=== PATIENT | male | born 1985 | race Caucasian/White ===

== ENCOUNTER 2017-07-22 04:28 | Inpatient (IN) | payer OTHER ==
[~2017-07-22] VITALS: Ht 172.7 cm; Wt 76.8 kg
[2017-07-22] VITALS (11 sets, daily range): BP systolic 136–154; BP diastolic 70–78; PULSE 60–92; RESP 16–39; TEMP 98.2–98.8; O2SAT 97–100
[2017-07-22] MEDS ORDERED: MIDAZOLAM HCL 5 MG/ML VIAL (1 ML) ONE (04:48)
[2017-07-22 04:51] LABS: I-STAT POTASSIUM 3.2 MMOL/L (3.5-4.9)
[2017-07-22] MEDS ORDERED: KETAMINE HCL 500 MG/5 ML VIAL ONE (04:51)
[2017-07-22 05:01] LABS: AUTOMATED NEUTROPHIL # 11.8 TH/MM3 (1.8-7.7); BASOPHIL # 0.1 TH/MM3 (0-0.2); BASOPHIL % 0.7 % (0.0-2.0); EOSINOPHIL # 0.1 TH/MM3 (0-0.4); EOSINOPHIL % 0.6 % (0.0-4.0); HEMO FLAGS DIFF FINAL; LYMPH % 24.8 % (9.0-44.0); LYMPHOCYTE # 4.3 TH/MM3 (1.0-4.8); MEAN CELL VOLUME 79.4 FL (80.0-100.0); MEAN CORPUSCULAR HEMOGLOBIN 26.4 PG (27.0-34.0); MEAN CORPUSCULAR HGB CONC 33.2 % (32.0-36.0); MONO % 5.6 % (0.0-8.0); NEUT % 68.3 % (16.0-70.0); PLATELET COUNT 325 TH/MM3 (150-450); RED BLOOD COUNT 5.17 MIL/MM3 (4.50-5.90); RED CELL DISTRIBUTION WIDTH 14.4 % (11.6-17.2); WHITE BLOOD COUNT 17.3 TH/MM3 (4.0-11.0)
[2017-07-22 05:03] LABS: APTT (PATIENT) 25.2 SEC (24.3-30.1)
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
[2017-07-22] MEDS ORDERED: SODIUM CHLOR 0.9% 1000 ML INJ 1,000 ML IV SCH (05:11)
[2017-07-22] MEDS ORDERED: MISCELLANEOUS NURSING INFORMATION XX SCH (05:15)
[2017-07-22] MEDS ORDERED: ENALAPRILAT 1.25 MG/ML VIAL IV PRN (05:15)
[2017-07-22] MEDS ORDERED: MAGNESIUM HYDROXIDE SUSP 30 ML CUP PO PRN (05:15)
[2017-07-22] MEDS ORDERED: MORPHINE SULFATE 4 MG/ML INJ IV PRN (05:15)
[2017-07-22] MEDS ORDERED: ONDANSETRON HCL 4 MG/2 ML VIAL IV PRN (05:15)
[2017-07-22] MEDS ORDERED: CHLORHEXIDINE GLUCONATE 2 % 1 PACK (2 CLOTHS) TOP PRN (05:15)
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
[2017-07-22] MEDS ORDERED: IOHEXOL 350 MG/ML 10 ML VIAL (for RAD DIAG) IVCONTRAST ONE (05:27)
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
[2017-07-22] MEDS ORDERED: HYDROmorphone HCL PF 1 MG/ML VIAL IV PUSH ONE (05:45)
[2017-07-22] MEDS: HYDROmorphone HCL PF 1 MG/ML VIAL IV PUSH PRN ×4 (06:54→23:41)
[2017-07-22] MEDS ORDERED: LACTULOSE SYRUP 20 GM/30 ML CUP PO PRN (07:15)
[2017-07-22] MEDS ORDERED: ACETAMINOPHEN 1000 MG/100 ML VIAL IV PRN (07:15)
[2017-07-22] MEDS ORDERED: RESP: ALBUTEROL 2.5 MG/IPRATROPIUM 0.5 MG NEB (PRN) NEB (07:15)
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
[2017-07-22] MEDS: DOCUSATE SODIUM 50 MG/SENNA 8.6 MG TAB PO SCH ×2 (09:00→21:43)
[2017-07-22] MEDS ORDERED: DOCUSATE SODIUM 100 MG/10 ML UDC PO SCH (09:00)
[2017-07-22] MEDS: levETIRAcetam INJ 500 MG in SODIUM CHLORIDE 0.9% INJ 100 ML IV SCH ×2 (09:09→21:43)
[2017-07-22] MEDS: PANTOPRAZOLE SODIUM 40 MG VIAL IV PUSH SCH (09:10)
[2017-07-22] MEDS: MULTIVITAMIN INJ 10 ML, THIAMINE INJ 100 MG, FOLIC ACID INJ 1 MG in SODIUM CHLORID 0.9%... IV SCH (09:20)
[2017-07-22] MEDS ORDERED: LACTATED RINGER'S 1000 ML INJ 1,000 ML IV ONE (09:46)
[2017-07-22] MEDS ORDERED: NEOSTIGMINE 3 MG/3 ML SYR IV ONE (09:46)
[2017-07-22] MEDS ORDERED: ONDANSETRON HCL 4 MG/2 ML VIAL IV PUSH ONE (09:46)
[2017-07-22] MEDS ORDERED: PROPOFOL 200 MG/20 ML AMP IV ONE (09:46)
[2017-07-22] MEDS ORDERED: VANCOMYCIN HCL 1000 MG VIAL ONE (09:55)
[2017-07-22] MEDS ORDERED: ceFAZolin INJ 1,000 MG VIAL ONE (09:55)
--- NOTE | 2017-07-22 12:57 | PD.OP ---
cc: Parvez Morales MD Operative Report Date of Surgery: Jul 22, 2017 Preoperative Diagnosis: Displaced left distal tibia and fibula fractures Postoperative Diagnosis: Procedure: Closed reduction left distal tibia and fibula fractures with manipulation, external fixation left ankle Anesthesia: Gen. Surgeon: Parvez Morales [employer] Buyer(s): CHRIS Kumari PA-C The surgical procedure was assisted by my physician it administrative assistant. My P.A. presence was necessary throughout this case for the manipulation and positioning of the surgical extremity. My P.A. was assisting me throughout the duration of this procedure. The skill set of a physician it administrative assistant was medically necessary to complete this procedure. During the surgical case the mechanical service technician was working at the back table and the physician it administrative assistant was directly assisting me. Operation and Findings: This patient sustained an injury resulting in unstable fractures of the left distal tibia and fibula. Patient was seen and evaluated preoperatively and found to have too much swelling to proceed with open reduction internal fixation. Risk and benefits of surgery were discussed in depth with patient and informed consent was confirmed. Surgical site was marked. Patient was brought to operating room and placed on the OR table. Patient was given IV sedation and GETA. Patient received IV antibiotics and timeout procedure was performed. Operative leg was prepped with alcohol followed by Hibiclens and draped in the usual sterile fashion.resulting in left tibia-fibula fractures. Timeout procedure was performed. The procedure began with placement of external fixation. Two percutaneous incisions were made over the tibia. Pin sites were pre-drilled. Synthes VILLANUEVA- coated pins were placed from anterior to posterior in the tibia shaft. An additional transfixion pin was placed through the calcaneus. Pins were also placed in the first and fifth metatarsals. An external fixator was now constructed. Fluoroscopy was used to confirm appropriate pin placement Next attention was turned to traction with manipulation of the leg. The fracture was manipulated under fluoroscopy. Excellent reduction was achieved. With the fracture held in reduced position, the external fixator was tightened. Fluoroscopy confirmed a well-placed external fixation with well-aligned fractures. Sterile dressings were applied. The patient was awakened and transferred to Recovery in stable condition. The soft tissue was reevaluated. Patient did have swelling around the ankle and calf but compartments were soft and compressible with no signs of compartment syndrome. Parvez Morales MD Jul 22, 2017 12:57
[2017-07-22] MEDS ORDERED: Post-op Orders (for Pharmacy) MISC XX ONE (13:00)
[2017-07-22] MEDS ORDERED: diphenhydrAMINE HCL 25 MG CAP PO PRN (13:00)
[2017-07-22] MEDS ORDERED: *MEPERIDINE 25 MG INJ VIAL PERIprocedural Use ONLY ONE (13:12)
[2017-07-22] MEDS ORDERED: *HYDROmorphone PF 1 MG VIAL PERIprocedural Use ONLY ONE (13:12)
[2017-07-22] MEDS ORDERED: DO NOT ADM ANY ANTICOAGULANT DRUGS PRN (13:45)
--- NOTE | 2017-07-22 13:55 | RADRPT ---
EXAM DATE/TIME: 07/22/2017 12:49 [facility] COMPARISON: No previous studies available for comparison. INDICATIONS : External fixation of the left ankle. MEDICAL HISTORY : None. SURGICAL HISTORY : None. ENCOUNTER: Subsequent ACUITY: 1 day PAIN SCORE: Non-responsive. LOCATION: Left ankle. FINDINGS: Patient is in an external fixator. There is reasonable alignment across the tibial plafond. There i s reasonable alignment across the distal tibia and fibula. CONCLUSION: Reasonable alignment in external fixer. Sreekanth Harper MD FACR on July 22, 2017 at 13:53 Board Certified Radiologist. This report was verified electronically.
--- NOTE | 2017-07-22 15:02 | RADRPT ---
EXAM DATE/TIME: 07/22/2017 14:20 [facility] COMPARISON: CT BRAIN W/O CONTRAST, July 22, 2017, 4:57. INDICATIONS : Follow up for bleed. RADIATION DOSE: 48.05 CTDIvol (mGy) MEDICAL HISTORY : Non-responsive. SURGICAL HISTORY : Non-responsive. ENCOUNTER: Subsequent ACUITY: 2 days PAIN SCALE: Non-responsive LOCATION: cranial TECHNIQUE: Multiple contiguous axial images were obtained of the head. Using automated exposure control and adj ustment of the mA and/or kV according to patient size, radiation dose was kept as low as reasonably a chievable to obtain optimal diagnostic quality images. DICOM format image data is available electro nically for review and comparison. FINDINGS: CEREBRUM: Stable small cortical hemorrhage left orbital floor to region no new hemorrhages are identified. POSTERIOR FOSSA: The cerebellum and brainstem are intact. The 4th ventricle is midline. The cerebellopontine angle i s unremarkable. EXTRACRANIAL: The visualized portion of the orbits is intact. SKULL: The calvaria is intact. No evidence of skull fracture. CONCLUSION: Stable small left frontal hemorrhage. Sreekanth Harper MD FACR on July 22, 2017 at 14:59 Board Certified Radiologist. This report was verified electronically.
[2017-07-22] MEDS: LACTATED RINGER'S 1000 ML INJ 1,000 ML IV SCH (15:05)
--- NOTE | 2017-07-22 15:10 | RADRPT ---
EXAM DATE/TIME: 07/22/2017 14:27 [facility] COMPARISON: No previous studies available for comparison. INDICATIONS : Left ankle fractures. RADIATION DOSE: 5.35 CTDIvol (mGy) MEDICAL HISTORY : Non-responsive. SURGICAL HISTORY : Non-responsive. ENCOUNTER: Initial ACUITY: 1 day PAIN SCALE: Non-responsive LOCATION: Left ankle TECHNIQUE: Volumetric scanning of the ankle was performed. Using automated exposure control and adjustment of t he mA and/or kV according to patient size, radiation dose was kept as low as reasonably achievable to obtain optimal diagnostic quality images. DICOM format image data is available electronically for review and comparison. FINDINGS: Patient is an external fixer. Only really can't there is good alignment across the articular surface of the tibial plafond. There are no intra-articular fragments identified. The talar dome is intact . The fracture, proximal C7 swimmer's above the tibial plafond is noted. Alignment about the fibula an d talus is anatomic. The comminution remains across the tibial plafond vital sign large dye punch defect evident. CONCLUSION: Alignment as described above in external fixator. Sreekanth Harper MD FACR on July 22, 2017 at 15:06 Board Certified Radiologist. This report was verified electronically.
[2017-07-22] MEDS: METHOCARBAMOL 500 MG TAB PO SCH ×2 (15:46→21:43)
[2017-07-22] MEDS: KETOROLAC TROMETHAMINE 30 MG/ML (IVP) VIAL IVP SCH ×2 (15:47→21:43)
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
[2017-07-23] VITALS (14 sets, daily range): BP systolic 122–145; BP diastolic 59–83; PULSE 51–84; RESP 14–23; TEMP 98.2–99.5; O2SAT 96–100
[2017-07-23] MEDS: LACTATED RINGER'S 1000 ML INJ 1,000 ML IV SCH (01:23)
[2017-07-23] MEDS: CHLORHEXIDINE GLUCONATE 2 % 1 PACK (2 CLOTHS) TOP SCH (04:00)
[2017-07-23 04:50] LABS: BICARBONATE 20.9 MEQ/L (21.0-32.0); POTASSIUM 4.1 MEQ/L (3.5-5.1)
[2017-07-23 05:28] LABS: AUTOMATED NEUTROPHIL # 7.2 TH/MM3 (1.8-7.7); BASOPHIL % 0.1 % (0.0-2.0); EOSINOPHIL % 0.1 % (0.0-4.0); HEMATOCRIT 36.3 % (39.0-51.0); HEMO FLAGS DIFF FINAL; LYMPH % 11.2 % (9.0-44.0); MEAN CELL VOLUME 79.3 FL (80.0-100.0); MEAN CORPUSCULAR HEMOGLOBIN 25.9 PG (27.0-34.0); MEAN CORPUSCULAR HGB CONC 32.6 % (32.0-36.0); NEUT % 78.6 % (16.0-70.0); PLATELET COUNT 220 TH/MM3 (150-450); RED BLOOD COUNT 4.58 MIL/MM3 (4.50-5.90); RED CELL DISTRIBUTION WIDTH 14.5 % (11.6-17.2); WHITE BLOOD COUNT 9.2 TH/MM3 (4.0-11.0)
--- NOTE | 2017-07-23 06:07 | RADRPT ---
EXAM DATE/TIME: 07/23/2017 04:33 [facility] COMPARISON: CHEST SINGLE AP, July 22, 2017, 4:20. INDICATIONS : Shortness of breath. MEDICAL HISTORY : Non-responsive SURGICAL HISTORY : Non-responsive ENCOUNTER: Subsequent ACUITY: 2 days PAIN SCORE: Non-responsive. LOCATION: Bilateral chest FINDINGS: A single view of the chest demonstrates subsegmental airspace disease at the lung bases. No effusion. No pneumothorax. Heart size upper limits normal. CONCLUSION: 1. Subsegmental airspace disease at the lung bases are, increased on the left since July 2. Tre Casarez MD on July 23, 2017 at 6:03 Board Certified Radiologist. This report was verified electronically.
[2017-07-23] MEDS: METHOCARBAMOL 500 MG TAB PO SCH ×3 (06:41→21:27)
[2017-07-23] MEDS: KETOROLAC TROMETHAMINE 30 MG/ML (IVP) VIAL IVP SCH (06:42)
--- NOTE | 2017-07-23 07:01 | PD.ORT.PN ---
Subjective Subjective Remarks POD 1 s/p exfix left tibial pilon fx doing well. pain controlled. resting comfortably. Objective Vitals Vital Signs Date Time Temp Pulse Resp B/P (MAP) Pulse Ox O2 Delivery O2 Flow Rate FiO2 07/23/17 04:00 55 07/23/17 04:00 98.6 55 17 128/66 (86) 96 07/23/17 02:00 52 07/23/17 00:00 84 07/23/17 00:00 98.2 58 14 122/59 (80) 100 07/22/17 22:00 84 07/22/17 20:57 98 07/22/17 20:00 98.8 76 27 154/78 (103) 97 07/22/17 20:00 84 07/22/17 19:00 100 Room Air 07/22/17 18:00 65 07/22/17 16:00 98.2 62 16 145/70 (95) 98 07/22/17 16:00 60 07/22/17 14:00 70 07/22/17 13:45 98.0 68 18 151/77 (101) 98 Nasal Cannula 2 07/22/17 13:30 73 18 160/79 (106) 100 Nasal Cannula 2 07/22/17 13:15 98.0 84 18 160/75 (103) 100 Nasal Cannula 2 07/22/17 11:55 98.8 80 20 128/66 (86) 97 07/22/17 10:40 98.8 80 20 128/66 (86) 97 07/22/17 10:00 85 07/22/17 08:00 92 07/22/17 08:00 100 Room Air 07/22/17 07:57 98 21 07/22/17 07:15 98.7 87 31 136/74 (94) 100 I/O 07/22/17 07/22/17 07/22/17 07/23/17 07/23/17 07/23/17 07:00 15:00 23:00 07:00 15:00 23:00 Intake Total 1705 ml 1487 ml Output Total 100 ml 20 ml 600 ml Balance -100 ml 1685 ml 887 ml Intake Oral 100 ml IV Total 705 ml 1387 ml Other 1000 ml Output Urine Total 100 ml 600 ml Estimated Blood Loss 20 ml Result Diagram: 07/23/17 0415 07/23/17 0415 Imaging Last 24 hours Impressions Pelvis X-Ray 07/22/178 Signed Impressions: Service Date/Time: Saturday, July 22, 2017 04:20 - CONCLUSION: Unremarkable examination of the pelvis. Tre Casarez MD Maxillofacial CT 07/22/17 0438 Signed Impressions: Service Date/Time: Saturday, July 22, 2017 04:57 - CONCLUSION: 1. No acute fracture identified. Trace fluid in the maxillary sinuses. Tre Casarez MD Head CT 07/22/17437 Signed Impressions: Service Date/Time: Saturday, July 22, 2017 04:57 - CONCLUSION: 1. 5 mm hemorrhagic contusion left frontal lobe. No other hemorrhage identified. Tre Casarez MD Chest X-Ray 07/22/17437 Signed Impressions: Service Date/Time: Saturday, July 22, 2017 04:20 - CONCLUSION: No acute disease. Tre Casarez MD Chest CT 07/22/17437 Signed Impressions: Service Date/Time: Saturday, July 22, 2017 05:02 - CONCLUSION: 1. Fractures of the right scapula and first and second right ribs as above. Mild right lung contusion superiorly. Dependent atelectasis in the lungs. Trace pleural fluid. No mediastinal hematoma. Tre Casarez MD Cervical Spine CT 07/22/178 Signed Impressions: Service Date/Time: Saturday, July 22, 2017 04:57 - CONCLUSION: 1. Fracture left transverse process C7, nondisplaced. No other cervical spine fractures. Upper right rib fractures noted incidentally. Tre Casarez MD Abdomen/Pelvis CT 07/22/17 0438 Signed Impressions: Service Date/Time: Saturday, July 22, 2017 05:02 - CONCLUSION: 1. Dependent atelectasis in the lungs. Negative for traumatic injury within the abdomen and pelvis. Tre Casarez MD Tibia/Fibula X-Ray 07/22/17 0000 Signed Impressions: Service Date/Time: Saturday, July 22, 2017 04:20 - CONCLUSION: 1. Fractures distal tibia and fibula. Also mildly displaced fracture proximal fibula. Tre Casarez MD Objective Remarks LLE: +exfix. pin sites clean. full sensation distally. 2+ swelling of ankle Assessment & Plan Assessment and Plan 1) Left Tibial Pilon Fx s/p application of exfix - POD 1 -ice -elevate -NWB -will continue to eval swelling. will plan for OR when swelling improved -Toradol 30mg Q6H x 6 doses Andrae Silva Jul 23, 2017 07:01
[2017-07-23] MEDS: KETOROLAC TROMETHAMINE 30 MG/ML (IVP) VIAL IV PUSH SCH ×4 (07:15→23:38)
[2017-07-23] MEDS: PANTOPRAZOLE SODIUM 40 MG VIAL IV PUSH SCH (07:38)
[2017-07-23] MEDS: levETIRAcetam INJ 500 MG in SODIUM CHLORIDE 0.9% INJ 100 ML IV SCH ×2 (08:09→21:27)
[2017-07-23] MEDS: DOCUSATE SODIUM 50 MG/SENNA 8.6 MG TAB PO SCH ×2 (08:11→21:27)
--- NOTE | 2017-07-23 08:12 | RADRPT ---
EXAM DATE/TIME: 07/23/2017 07:49 [facility] COMPARISON: CT BRAIN W/O CONTRAST, July 22, 2017, 14:20. INDICATIONS : Follow up bleed. RADIATION DOSE: 56.35 CTDIvol (mGy) MEDICAL HISTORY : Non-responsive. SURGICAL HISTORY : Non-responsive. ENCOUNTER: Subsequent ACUITY: 2 days PAIN SCALE: Non-responsive LOCATION: cranial TECHNIQUE: Multiple contiguous axial images were obtained of the head. Using automated exposure control and adj ustment of the mA and/or kV according to patient size, radiation dose was kept as low as reasonably a chievable to obtain optimal diagnostic quality images. DICOM format image data is available electro nically for review and comparison. FINDINGS: There is a focal left frontal subcortical hemorrhage measuring 5.8 mm. There is no midline shift or m ass effect. No signs of acute infarction. No fractures are seen. CONCLUSION: Stable left frontal parenchymal hemorrhage.. Jason Bernstein MD on July 23, 2017 at 8:10 Board Certified Radiologist. This report was verified electronically.
[2017-07-23] MEDS: MULTIVITAMIN INJ 10 ML, THIAMINE INJ 100 MG, FOLIC ACID INJ 1 MG in SODIUM CHLORID 0.9%... IV SCH (09:52)
--- NOTE | 2017-07-23 11:11 | HHI.CCPN ---
Subjective 24 Hour Review/Hospital Course 07/23/17 Patient underwent closed reduction of his left tibia and fibula fracture with ex -fix of his left ankle fracture yesterday His head CT is stable today and clinically he has much improved with a [place] Coma Scale of 15 Transfer to floor today if okay with neurosurgery, start Lovenox Monday Objective Vital Signs Date Time Temp Pulse Resp B/P (MAP) Pulse Ox O2 Delivery O2 Flow Rate FiO2 07/23/17 10:00 62 07/23/17 08:00 99.0 19 135/65 (88) 99 07/23/17 07:00 Room Air 07/22/17 13:45 2 07/22/17 07:57 21 Intake and Output 07/23/17 07/23/17 07/24/17 08:00 16:00 00:00 Intake Total 1167 ml 301 ml Output Total 600 ml Balance 567 ml 301 ml Result Diagram: 07/23/17 0415 07/23/17 0415 Imaging Last 24 hours Impressions Chest X-Ray 07/23/17 0600 Signed Impressions: Service Date/Time: Sunday, July 23, 2017 04:33 - CONCLUSION: 1. Subsegmental airspace disease at the lung bases are, increased on the left since July 22. Tre Casarez MD Head CT 07/23/17 0000 Signed Impressions: Service Date/Time: Sunday, July 23, 2017 07:49 - CONCLUSION: Stable left frontal parenchymal hemorrhage.. Jason Bernstein MD Lower Extremity CT 07/22/17 1600 Signed Impressions: Service Date/Time: Saturday, July 22, 2017 14:27 - CONCLUSION: Alignment as described above in external fixator. Sreekanth Harper MD FACR Head CT 07/22/17 1200 Signed Impressions: Service Date/Time: Saturday, July 22, 2017 14:20 - CONCLUSION: Stable small left frontal hemorrhage. 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
[2017-07-23] MEDS ORDERED: SENN1TAB PO (12:16)
[2017-07-23] MEDS ORDERED: MAGN400S PO (12:16)
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
[2017-07-23] MEDS: ACETAMINOPHEN/HYDROcodone 325 MG/7.5 MG TAB PO PRN (21:27)
[2017-07-24] MEDS: ACETAMINOPHEN/HYDROcodone 325 MG/7.5 MG TAB PO PRN ×4 (00:27→22:16)
[2017-07-24] MEDS: CHLORHEXIDINE GLUCONATE 2 % 1 PACK (2 CLOTHS) TOP SCH (04:00)
[2017-07-24 04:10] VITALS: BP 116/65; PULSE 65; RESP 17; TEMP 97; O2SAT 97
[2017-07-24] MEDS: KETOROLAC TROMETHAMINE 30 MG/ML (IVP) VIAL IV PUSH SCH ×2 (05:46→13:14)
[2017-07-24] MEDS: METHOCARBAMOL 500 MG TAB PO SCH ×3 (05:46→22:16)
[2017-07-24 06:23] LABS: AUTOMATED NEUTROPHIL # 3.6 TH/MM3 (1.8-7.7); BASOPHIL % 0.6 % (0.0-2.0); EOSINOPHIL # 0.2 TH/MM3 (0-0.4); EOSINOPHIL % 2.8 % (0.0-4.0); HEMATOCRIT 33.7 % (39.0-51.0); HEMO FLAGS DIFF FINAL; LYMPH % 24.7 % (9.0-44.0); LYMPHOCYTE # 1.4 TH/MM3 (1.0-4.8); MEAN CELL VOLUME 77.9 FL (80.0-100.0); MEAN CORPUSCULAR HGB CONC 33.4 % (32.0-36.0); MONO % 8.7 % (0.0-8.0); NEUT % 63.2 % (16.0-70.0); PLATELET COUNT 214 TH/MM3 (150-450); RED BLOOD COUNT 4.33 MIL/MM3 (4.50-5.90); RED CELL DISTRIBUTION WIDTH 14.2 % (11.6-17.2); WHITE BLOOD COUNT 5.6 TH/MM3 (4.0-11.0)
--- NOTE | 2017-07-24 06:27 | RADRPT ---
EXAM DATE/TIME: 07/24/2017 05:51 [place] COMPARISON: Yesterday. INDICATIONS : Shortness of breath. MEDICAL HISTORY : Unobtainable SURGICAL HISTORY : Unobtainable ENCOUNTER: Subsequent ACUITY: 3 days PAIN SCORE: Non-responsive. LOCATION: Bilateral chest FINDINGS: Mild left base consolidation not significantly changed. A small left pleural effusion is likely. Righ t lung presumably clear. There is no pneumothorax. Heart size stable, upper limits of normal. CONCLUSION: Mild consolidation and small pleural effusion at the left lung base not significantly changed. Liam Venegas MD on July 24, 2017 at 6:24 Board Certified Radiologist. This report was verified electronically.
[2017-07-24 06:52] LABS: ALT (GPT) 215 U/L (12-78); ANION GAP 8 MEQ/L (5-15); AST (GOT) 144 U/L (15-37); BICARBONATE 23.8 MEQ/L (21.0-32.0); BLOOD UREA NITROGEN 14 MG/DL (7-18); CHLORIDE 111 MEQ/L (98-107); GLOMERULAR FILTRATION RATE 147 ML/MIN (>89); POTASSIUM 3.8 MEQ/L (3.5-5.1); SODIUM (NA) 143 MEQ/L (136-145)
[2017-07-24 06:54] LABS: ALKALINE PHOSPHATASE 47 U/L (45-117); TOTAL BILIRUBIN ADULT 0.7 MG/DL (0.2-1.0)
--- NOTE | 2017-07-24 07:10 | PD.ORT.PN ---
Subjective Subjective Remarks Resting comfortably with no new complaints Objective Vitals Vital Signs Date Time Temp Pulse Resp B/P (MAP) Pulse Ox O2 Delivery O2 Flow Rate FiO2 07/24/17 04:10 97.0 65 17 116/65 (82) 97 07/23/17 21:54 98.6 65 20 136/72 (93) 97 07/23/17 20:42 98 07/23/17 20:00 99.5 69 23 139/83 (101) 96 07/23/17 20:00 69 07/23/17 19:00 100 Room Air 07/23/17 18:00 75 07/23/17 16:00 98.7 75 20 131/73 (92) 99 07/23/17 16:00 77 07/23/17 14:00 55 07/23/17 13:50 98 21 07/23/17 12:00 99.1 51 14 145/77 (99) 100 07/23/17 12:00 51 07/23/17 10:00 62 07/23/17 08:00 99.0 67 19 135/65 (88) 99 07/23/17 08:00 67 I/O 07/23/17 07/23/17 07/23/17 07/24/17 07/24/17 07/24/17 07:00 15:00 23:00 07:00 15:00 23:00 Intake Total 1167 ml 911 ml 850 ml 240 ml Output Total 600 ml 650 ml 200 ml Balance 567 ml 911 ml 200 ml 40 ml Intake Oral 125 ml 200 ml 240 ml IV Total 1042 ml 911 ml 650 ml Output Urine Total 600 ml 650 ml 200 ml # Bowel Movements 0 0 Result Diagram: 07/24/17 0549 07/24/17 0549 Imaging Last 24 hours Impressions Pelvis X-Ray 07/22/17437 Signed Impressions: Service Date/Time: Saturday, July 22, 2017 04:20 - CONCLUSION: Unremarkable examination of the pelvis. Tre Casarez MD Maxillofacial CT 07/22/178 Signed Impressions: Service Date/Time: Saturday, July 22, 2017 04:57 - CONCLUSION: 1. No acute fracture identified. Trace fluid in the maxillary sinuses. Tre Casarez MD Head CT 07/22/178 Signed Impressions: Service Date/Time: Saturday, July 22, 2017 04:57 - CONCLUSION: 1. 5 mm hemorrhagic contusion left frontal lobe. No other hemorrhage identified. Tre Casarez MD Chest X-Ray 07/22/17437 Signed Impressions: Service Date/Time: Saturday, July 22, 2017 04:20 - CONCLUSION: No acute disease. Tre Casarez MD Chest CT 07/22/178 Signed Impressions: Service Date/Time: Saturday, July 22, 2017 05:02 - CONCLUSION: 1. Fractures of the right scapula and first and second right ribs as above. Mild right lung contusion superiorly. Dependent atelectasis in the lungs. Trace pleural fluid. No mediastinal hematoma. Tre Casarez MD Cervical Spine CT 07/22/17437 Signed Impressions: Service Date/Time: Saturday, July 22, 2017 04:57 - CONCLUSION: 1. Fracture left transverse process C7, nondisplaced. No other cervical spine fractures. Upper right rib fractures noted incidentally. Tre Casarez MD Abdomen/Pelvis CT 07/22/17437 Signed Impressions: Service Date/Time: Saturday, July 22, 2017 05:02 - CONCLUSION: 1. Dependent atelectasis in the lungs. Negative for traumatic injury within the abdomen and pelvis. Tre Casarez MD Tibia/Fibula X-Ray 07/22/17 0000 Signed Impressions: Service Date/Time: Saturday, July 22, 2017 04:20 - CONCLUSION: 1. Fractures distal tibia and fibula. Also mildly displaced fracture proximal fibula. Tre Casarez MD Objective Remarks Left lower extremity: +exfix. pin sites clean. full sensation distally. 2+ swelling of ankle Right upper extremity: Pain to palpation over scapula and acromion. Sling in place. He has no pain with motion of elbow wrist or fingers. He has intact sensation with full extension and flexion of all fingers Assessment & Plan Assessment and Plan 1) Left Tibial Pilon Fx s/p application of exfix - POD 2 -ice -elevate -NWB -will continue to eval swelling. will plan for OR when swelling improved -Toradol 30mg Q6H x 6 doses 2) right scapula body and acromion fracture Nonweightbearing right upper extremity Sling at all times Conservative treatment with no surgery anticipated. We'll continue to follow with x-rays to make sure fracture does not displace further Cosmo Saez Jr. Jul 24, 2017 07:09
[2017-07-24 08:00] VITALS: BP 120/65; PULSE 59; RESP 16; TEMP 98.5; O2SAT 97
[2017-07-24] MEDS: MULTIVITAMIN INJ 10 ML, THIAMINE INJ 100 MG, FOLIC ACID INJ 1 MG in SODIUM CHLORID 0.9%... IV SCH (09:21)
[2017-07-24] MEDS: levETIRAcetam INJ 500 MG in SODIUM CHLORIDE 0.9% INJ 100 ML IV SCH ×2 (09:21→21:16)
[2017-07-24] MEDS: LACTULOSE SYRUP 20 GM/30 ML CUP PO SCH ×2 (09:22→09:25)
[2017-07-24] MEDS: DOCUSATE SODIUM 50 MG/SENNA 8.6 MG TAB PO SCH ×2 (09:22→21:16)
[2017-07-24] MEDS: FAMOTIDINE 20 MG TAB PO SCH ×2 (09:22→21:16)
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
[2017-07-24] MEDS ORDERED: HYDROmorphone HCL PF 1 MG/ML VIAL IV PUSH PRN (11:00)
[2017-07-24 12:00] VITALS: BP 122/73; PULSE 70; RESP 17; TEMP 98; O2SAT 96
[2017-07-24] MEDS: ENOXAPARIN SODIUM 30 MG/0.3 ML SYRINGE SQ SCH ×2 (13:14→22:16)
[2017-07-24 16:00] VITALS: BP 141/81; PULSE 60; RESP 18; TEMP 98.6; O2SAT 98
[2017-07-24 19:50] VITALS: BP 132/75; PULSE 70; RESP 18; TEMP 98.3; O2SAT 97
[2017-07-24] MEDS: MAGNESIUM HYDROXIDE SUSP 30 ML CUP PO SCH (21:16)
[2017-07-24 23:00] VITALS: BP 131/70; PULSE 57; RESP 17; TEMP 97.9; O2SAT 97
[2017-07-25] MEDS: METHOCARBAMOL 500 MG TAB PO SCH ×3 (05:59→21:54)
--- NOTE | 2017-07-25 06:27 | PD.ORT.PN ---
Subjective Subjective Remarks Resting comfortably with no new complaints Objective Vitals Vital Signs Date Time Temp Pulse Resp B/P (MAP) Pulse Ox O2 Delivery O2 Flow Rate FiO2 07/24/17 23:00 97.9 57 17 131/70 (90) 97 07/24/17 19:50 98.3 70 18 132/75 (94) 97 07/24/17 16:00 98.6 60 18 141/81 (101) 98 07/24/17 12:00 98.0 70 17 122/73 (89) 96 07/24/17 08:00 98.5 59 16 120/65 (83) 97 I/O 07/24/17 07/24/17 07/24/17 07/25/17 07/25/17 07/25/17 06:59 14:59 22:59 06:59 14:59 22:59 Intake Total 240 ml 1680 ml Output Total 200 ml 800 ml Balance 40 ml 880 ml Intake Oral 240 ml 1680 ml Output Urine Total 200 ml 800 ml # Voids 4 # Bowel Movements 0 1 Result Diagram: 07/24/17 0549 07/24/17 0549 Imaging Last 24 hours Impressions Pelvis X-Ray 07/22/17437 Signed Impressions: Service Date/Time: Saturday, July 22, 2017 04:20 - CONCLUSION: Unremarkable examination of the pelvis. Tre Casarez MD Maxillofacial CT 07/22/17437 Signed Impressions: Service Date/Time: Saturday, July 22, 2017 04:57 - CONCLUSION: 1. No acute fracture identified. Trace fluid in the maxillary sinuses. Tre Casarez MD Head CT 07/22/178 Signed Impressions: Service Date/Time: Saturday, July 22, 2017 04:57 - CONCLUSION: 1. 5 mm hemorrhagic contusion left frontal lobe. No other hemorrhage identified. Tre Casarez MD Chest X-Ray 07/22/17437 Signed Impressions: Service Date/Time: Saturday, July 22, 2017 04:20 - CONCLUSION: No acute disease. Tre Casarez MD Chest CT 07/22/178 Signed Impressions: Service Date/Time: Saturday, July 22, 2017 05:02 - CONCLUSION: 1. Fractures of the right scapula and first and second right ribs as above. Mild right lung contusion superiorly. Dependent atelectasis in the lungs. Trace pleural fluid. No mediastinal hematoma. Tre Casarez MD Cervical Spine CT 07/22/17 0438 Signed Impressions: Service Date/Time: Saturday, July 22, 2017 04:57 - CONCLUSION: 1. Fracture left transverse process C7, nondisplaced. No other cervical spine fractures. Upper right rib fractures noted incidentally. Tre Casarez MD Abdomen/Pelvis CT 07/22/17 0438 Signed Impressions: Service Date/Time: Saturday, July 22, 2017 05:02 - CONCLUSION: 1. Dependent atelectasis in the lungs. Negative for traumatic injury within the abdomen and pelvis. Tre Casarez MD Tibia/Fibula X-Ray 07/22/17 0000 Signed Impressions: Service Date/Time: Saturday, July 22, 2017 04:20 - CONCLUSION: 1. Fractures distal tibia and fibula. Also mildly displaced fracture proximal fibula. Tre Casarez MD Objective Remarks Left lower extremity: +exfix. pin sites clean. full sensation distally. 2+ swelling of ankle Right upper extremity: Pain to palpation over scapula and acromion. Sling loosened. He has no pain with motion of elbow wrist or fingers. He has intact sensation with full extension and flexion of all fingers Assessment & Plan Assessment and Plan 1) Left Tibial Pilon Fx s/p application of exfix - POD 3 -ice -elevate -NWB -will continue to eval swelling. will plan for OR when swelling improved -Toradol 30mg Q6H x 6 doses 2) right scapula body and acromion fracture Nonweightbearing right upper extremity Sling at all times Conservative treatment with no surgery anticipated. We'll continue to follow with x-rays to make sure fracture does not displace further Cosmo Saez Jr. Jul 25, 2017 06:27
[2017-07-25] MEDS ORDERED: KETOROLAC TROMETHAMINE 30 MG/ML (IVP) VIAL IV PUSH SCH (06:30)
[2017-07-25 08:00] VITALS: BP 127/76; PULSE 56; RESP 18; TEMP 97.8; O2SAT 97
[2017-07-25] MEDS: DOCUSATE SODIUM 50 MG/SENNA 8.6 MG TAB PO SCH ×2 (08:18→21:54)
[2017-07-25] MEDS: FAMOTIDINE 20 MG TAB PO SCH ×2 (08:18→21:54)
[2017-07-25] MEDS: levETIRAcetam INJ 500 MG in SODIUM CHLORIDE 0.9% INJ 100 ML IV SCH ×2 (08:19→22:01)
[2017-07-25] MEDS: LACTULOSE SYRUP 20 GM/30 ML CUP PO SCH (09:00)
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
[2017-07-25] MEDS: ENOXAPARIN SODIUM 30 MG/0.3 ML SYRINGE SQ SCH ×2 (11:01→21:55)
[2017-07-25] MEDS: ACETAMINOPHEN/HYDROcodone 325 MG/7.5 MG TAB PO PRN (11:03)
[2017-07-25 12:00] VITALS: BP 129/73; PULSE 64; RESP 18; TEMP 98.3; O2SAT 97
[2017-07-25] MEDS: KETOROLAC TROMETHAMINE 30 MG/ML (IVP) VIAL IV PUSH SCH ×2 (13:09→21:55)
[2017-07-25 16:00] VITALS: BP 125/74; PULSE 60; RESP 18; TEMP 97.5; O2SAT 98
[2017-07-25 19:50] VITALS: BP 133/83; PULSE 69; RESP 17; TEMP 98.4; O2SAT 95
[2017-07-25] MEDS: MAGNESIUM HYDROXIDE SUSP 30 ML CUP PO SCH (21:54)
[2017-07-26 00:40] VITALS: BP 122/75; PULSE 64; RESP 16; TEMP 97; O2SAT 97
[2017-07-26] MEDS: METHOCARBAMOL 500 MG TAB PO SCH ×3 (05:39→21:14)
[2017-07-26] MEDS: KETOROLAC TROMETHAMINE 30 MG/ML (IVP) VIAL IV PUSH SCH ×3 (05:40→21:15)
--- NOTE | 2017-07-26 06:32 | PD.ORT.PN ---
Subjective Subjective Remarks POD 4 s/p exfix left tibial pilon fx doing well. pain controlled. resting comfortably. Objective Vitals Vital Signs Date Time Temp Pulse Resp B/P (MAP) Pulse Ox O2 Delivery O2 Flow Rate FiO2 07/26/17 04:00 Room Air 07/26/17 00:40 97.0 64 16 122/75 (91) 97 07/26/17 00:00 Room Air 07/25/17 20:00 Room Air 07/25/17 19:50 98.4 69 17 133/83 (100) 95 07/25/17 16:00 97.5 60 18 125/74 (91) 98 07/25/17 12:00 98.3 64 18 129/73 (91) 97 07/25/17 08:00 97.8 56 18 127/76 (93) 97 I/O 07/25/17 07/25/17 07/25/17 07/26/17 07/26/17 07/26/17 07:00 15:00 23:00 07:00 15:00 23:00 Intake Total 240 ml 600 ml 105 ml Output Total 200 ml Balance 40 ml 600 ml 105 ml Intake Oral 240 ml 600 ml IV Total 105 ml Output Urine Total 200 ml # Voids 4 # Bowel Movements 0 0 Result Diagram: 07/24/17 0549 07/24/17 0549 Imaging Last 24 hours Impressions Pelvis X-Ray 07/22/17437 Signed Impressions: Service Date/Time: Saturday, July 22, 2017 04:20 - CONCLUSION: Unremarkable examination of the pelvis. Tre Casarez MD Maxillofacial CT 07/22/17437 Signed Impressions: Service Date/Time: Saturday, July 22, 2017 04:57 - CONCLUSION: 1. No acute fracture identified. Trace fluid in the maxillary sinuses. Tre Casarez MD Head CT 07/22/17437 Signed Impressions: Service Date/Time: Saturday, July 22, 2017 04:57 - CONCLUSION: 1. 5 mm hemorrhagic contusion left frontal lobe. No other hemorrhage identified. Tre Casarez MD Chest X-Ray 07/22/17437 Signed Impressions: Service Date/Time: Saturday, July 22, 2017 04:20 - CONCLUSION: No acute disease. Tre Casarez MD Chest CT 9/2/17 0438 Signed Impressions: Service Date/Time: Saturday, July 22, 2017 05:02 - CONCLUSION: 1. Fractures of the right scapula and first and second right ribs as above. Mild right lung contusion superiorly. Dependent atelectasis in the lungs. Trace pleural fluid. No mediastinal hematoma. Tre Casarez MD Cervical Spine CT 07/22/17 0438 Signed Impressions: Service Date/Time: Saturday, July 22, 2017 04:57 - CONCLUSION: 1. Fracture left transverse process C7, nondisplaced. No other cervical spine fractures. Upper right rib fractures noted incidentally. Tre Casarez MD Abdomen/Pelvis CT 07/22/17 0438 Signed Impressions: Service Date/Time: Saturday, July 22, 2017 05:02 - CONCLUSION: 1. Dependent atelectasis in the lungs. Negative for traumatic injury within the abdomen and pelvis. Tre Casarez MD Tibia/Fibula X-Ray 07/22/17 0000 Signed Impressions: Service Date/Time: Saturday, July 22, 2017 04:20 - CONCLUSION: 1. Fractures distal tibia and fibula. Also mildly displaced fracture proximal fibula. Tre Casarez MD Objective Remarks Left lower extremity: +exfix. pin sites clean. full sensation distally. 2+ swelling of ankle Right upper extremity: Pain to palpation over scapula and acromion. Sling loosened. He has no pain with motion of elbow wrist or fingers. He has intact sensation with full extension and flexion of all fingers Assessment & Plan Assessment and Plan 1) Left Tibial Pilon Fx s/p application of exfix - POD 4 -ice -elevate -NWB -will continue to eval swelling. will plan for OR when swelling improved. still too swollen for OR 2) right scapula body and acromion fracture Nonweightbearing right upper extremity Sling at all times Conservative treatment with no surgery anticipated. We'll continue to follow with x-rays to make sure fracture does not displace further Andrae Silva Jul 26, 2017 06:32
[2017-07-26 08:00] VITALS: BP 113/77; PULSE 58; RESP 18; TEMP 97.3; O2SAT 97
[2017-07-26] MEDS: levETIRAcetam INJ 500 MG in SODIUM CHLORIDE 0.9% INJ 100 ML IV SCH ×2 (09:36→21:16)
[2017-07-26] MEDS: DOCUSATE SODIUM 50 MG/SENNA 8.6 MG TAB PO SCH ×2 (09:36→21:15)
[2017-07-26] MEDS: LACTULOSE SYRUP 20 GM/30 ML CUP PO SCH (09:36)
[2017-07-26] MEDS: FAMOTIDINE 20 MG TAB PO SCH ×2 (09:36→21:15)
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
[2017-07-26 12:00] VITALS: BP 122/72; PULSE 67; RESP 18; TEMP 97.8; O2SAT 97
[2017-07-26] MEDS: ACETAMINOPHEN/HYDROcodone 325 MG/7.5 MG TAB PO PRN (12:12)
[2017-07-26 16:00] VITALS: BP 112/67; PULSE 75; RESP 20; TEMP 97.4; O2SAT 98
[2017-07-26] MEDS: ENOXAPARIN SODIUM 30 MG/0.3 ML SYRINGE SQ SCH ×2 (16:00→21:20)
[2017-07-26 19:00] VITALS: BP 121/74; PULSE 69; RESP 16; TEMP 96; O2SAT 96
[2017-07-26] MEDS: MAGNESIUM HYDROXIDE SUSP 30 ML CUP PO SCH (21:00)
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
[2017-07-27] VITALS: BP 113/72; PULSE 63; RESP 16; TEMP 96.7; O2SAT 93
[2017-07-27] MEDS: METHOCARBAMOL 500 MG TAB PO SCH ×2 (06:10→21:27)
[2017-07-27] MEDS: KETOROLAC TROMETHAMINE 30 MG/ML (IVP) VIAL IV PUSH SCH (06:11)
--- NOTE | 2017-07-27 06:54 | PD.ORT.PN ---
Subjective Subjective Remarks POD 5 s/p exfix left tibial pilon fx doing well. pain controlled. resting comfortably. Objective Vitals Vital Signs Date Time Temp Pulse Resp B/P (MAP) Pulse Ox O2 Delivery O2 Flow Rate FiO2 07/27/17 00:00 96.7 63 16 113/72 (86) 93 07/26/17 20:00 Room Air 07/26/17 19:00 96.0 69 16 121/74 (90) 96 07/26/17 16:00 97.4 75 20 112/67 (82) 98 07/26/17 12:00 97.8 67 18 122/72 (89) 97 07/26/17 08:00 97.3 58 18 113/77 (89) 97 07/26/17 08:00 97.3 58 18 113/77 (89) 07/26/17 07:00 Room Air 2.00 21 I/O 07/26/17 07/26/17 07/26/17 07/27/17 07/27/17 07/27/17 07:00 15:00 23:00 07:00 15:00 23:00 Intake Total 240 ml 600 ml 720 ml Output Total 200 ml Balance 40 ml 600 ml 720 ml Intake Oral 240 ml 600 ml 720 ml Output Urine Total 200 ml # Voids 4 5 3 # Bowel Movements 0 0 0 0 Result Diagram: 07/24/17 0549 07/24/17 0549 Imaging Last 24 hours Impressions Pelvis X-Ray 07/22/17437 Signed Impressions: Service Date/Time: Saturday, July 22, 2017 04:20 - CONCLUSION: Unremarkable examination of the pelvis. Tre Casarez MD Maxillofacial CT 07/22/17437 Signed Impressions: Service Date/Time: Saturday, July 22, 2017 04:57 - CONCLUSION: 1. No acute fracture identified. Trace fluid in the maxillary sinuses. Tre Casarez MD Head CT 07/22/17437 Signed Impressions: Service Date/Time: Saturday, July 22, 2017 04:57 - CONCLUSION: 1. 5 mm hemorrhagic contusion left frontal lobe. No other hemorrhage identified. Tre Casarez MD Chest X-Ray 07/22/17437 Signed Impressions: Service Date/Time: Saturday, July 22, 2017 04:20 - CONCLUSION: No acute disease. Tre Casarez MD Chest CT 07/22/17 0438 Signed Impressions: Service Date/Time: Saturday, July 22, 2017 05:02 - CONCLUSION: 1. Fractures of the right scapula and first and second right ribs as above. Mild right lung contusion superiorly. Dependent atelectasis in the lungs. Trace pleural fluid. No mediastinal hematoma. Tre Casarez MD Cervical Spine CT 07/22/17 0438 Signed Impressions: Service Date/Time: Saturday, July 22, 2017 04:57 - CONCLUSION: 1. Fracture left transverse process C7, nondisplaced. No other cervical spine fractures. Upper right rib fractures noted incidentally. Tre Casarez MD Abdomen/Pelvis CT 07/22/178 Signed Impressions: Service Date/Time: Saturday, July 22, 2017 05:02 - CONCLUSION: 1. Dependent atelectasis in the lungs. Negative for traumatic injury within the abdomen and pelvis. Tre Casarez MD Tibia/Fibula X-Ray 07/22/17 0000 Signed Impressions: Service Date/Time: Saturday, July 22, 2017 04:20 - CONCLUSION: 1. Fractures distal tibia and fibula. Also mildly displaced fracture proximal fibula. Tre Casarez MD Objective Remarks Left lower extremity: +exfix. pin sites clean. full sensation distally. 2+ swelling of ankle Right upper extremity: Pain to palpation over scapula and acromion. Sling loosened. He has no pain with motion of elbow wrist or fingers. He has intact sensation with full extension and flexion of all fingers Assessment & Plan Assessment and Plan 1) Left Tibial Pilon Fx s/p application of exfix - POD 5 -ice -elevate -NWB -will continue to eval swelling. will plan for OR when swelling improved. still too swollen for OR -npo after MN -hold lovenox after AM dose 2) right scapula body and acromion fracture Nonweightbearing right upper extremity Sling at all times Conservative treatment with no surgery anticipated. We'll continue to follow with x-rays to make sure fracture does not displace further Andrae Silva Jul 27, 2017 06:53
[2017-07-27 08:00] VITALS: BP 121/77; PULSE 60; RESP 16; TEMP 97.4; O2SAT 97
[2017-07-27] MEDS: LACTULOSE SYRUP 20 GM/30 ML CUP PO SCH (09:28)
[2017-07-27] MEDS: levETIRAcetam INJ 500 MG in SODIUM CHLORIDE 0.9% INJ 100 ML IV SCH ×2 (09:28→21:27)
[2017-07-27] MEDS: ACETAMINOPHEN/HYDROcodone 325 MG/7.5 MG TAB PO PRN (09:28)
[2017-07-27] MEDS: FAMOTIDINE 20 MG TAB PO SCH ×2 (09:28→21:27)
[2017-07-27] MEDS: DOCUSATE SODIUM 50 MG/SENNA 8.6 MG TAB PO SCH ×2 (09:28→21:27)
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
[2017-07-27 11:52] VITALS: BP 111/65; PULSE 68; RESP 17; TEMP 97.5; O2SAT 96
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
[2017-07-27 16:00] VITALS: BP 127/71; PULSE 59; RESP 17; TEMP 97.5; O2SAT 98
[2017-07-27 20:00] VITALS: BP 121/74; PULSE 87; RESP 16; TEMP 99; O2SAT 97
[2017-07-27] MEDS: MAGNESIUM HYDROXIDE SUSP 30 ML CUP PO SCH (21:27)
[2017-07-28] VITALS: BP 130/76; PULSE 69; RESP 16; TEMP 98.7; O2SAT 97
[2017-07-28 04:00] VITALS: BP 119/68; PULSE 64; RESP 17; TEMP 98.8; O2SAT 97
[2017-07-28] MEDS: METHOCARBAMOL 500 MG TAB PO SCH ×3 (06:14→21:58)
[2017-07-28] MEDS: levETIRAcetam INJ 500 MG in SODIUM CHLORIDE 0.9% INJ 100 ML IV SCH ×2 (07:41→22:04)
[2017-07-28] MEDS: DOCUSATE SODIUM 50 MG/SENNA 8.6 MG TAB PO SCH ×2 (07:41→21:58)
[2017-07-28] MEDS: LACTULOSE SYRUP 20 GM/30 ML CUP PO SCH (07:41)
[2017-07-28] MEDS: FAMOTIDINE 20 MG TAB PO SCH ×2 (07:41→21:58)
[2017-07-28 08:00] VITALS: BP 133/72; PULSE 59; RESP 16; TEMP 98.4; O2SAT 98
[2017-07-28] MEDS ORDERED: BISACODYL 10 MG SUPP RECTAL ONE (09:30)
[2017-07-28] MEDS ORDERED: BISACODYL EC 5 MG TABEC PO ONE (09:30)
[2017-07-28 09:42] LABS: HEMATOCRIT 33.6 % (39.0-51.0); MEAN CELL VOLUME 78.4 FL (80.0-100.0); MEAN CORPUSCULAR HEMOGLOBIN 26.6 PG (27.0-34.0); MEAN CORPUSCULAR HGB CONC 33.9 % (32.0-36.0); PLATELET COUNT 249 TH/MM3 (150-450); RED BLOOD COUNT 4.29 MIL/MM3 (4.50-5.90); RED CELL DISTRIBUTION WIDTH 14.3 % (11.6-17.2); REVIEW FLAG FINAL; WHITE BLOOD COUNT 8.1 TH/MM3 (4.0-11.0)
[2017-07-28 10:10] LABS: BICARBONATE 22.3 MEQ/L (21.0-32.0); POTASSIUM 3.9 MEQ/L (3.5-5.1)
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
[2017-07-28] MEDS: ENOXAPARIN SODIUM 30 MG/0.3 ML SYRINGE SQ SCH ×2 (11:00→23:27)
--- NOTE | 2017-07-28 11:49 | PD.ORT.PN ---
Subjective Subjective Remarks Resting comfortably with no new complaints Objective Vitals Vital Signs Date Time Temp Pulse Resp B/P (MAP) Pulse Ox O2 Delivery O2 Flow Rate FiO2 07/28/17 08:00 98.4 59 16 133/72 (92) 98 07/28/17 07:46 Room Air 07/28/17 04:00 98.8 64 17 119/68 (85) 97 07/28/17 04:00 Room Air 07/28/17 00:00 98.7 69 16 130/76 (94) 97 07/28/17 00:00 Room Air 07/27/17 20:00 Room Air 07/27/17 20:00 99.0 87 16 121/74 (90) 97 07/27/17 16:00 97.5 59 17 127/71 (89) 98 07/27/17 11:52 97.5 68 17 111/65 (80) 96 07/27/17 11:52 Room Air 2.00 21 I/O 07/27/17 07/27/17 07/27/17 07/28/17 07/28/17 07/28/17 07:00 15:00 23:00 07:00 15:00 23:00 Intake Total 1065 ml 0 ml Output Total 250 ml Balance 1065 ml -250 ml Intake Oral 960 ml 0 ml IV Total 105 ml Output Urine Total 250 ml # Voids 3 4 # Bowel Movements 0 1 Result Diagram: 07/28/1743 07/28/17 0843 Imaging Last 24 hours Impressions Pelvis X-Ray 07/22/17437 Signed Impressions: Service Date/Time: Saturday, July 22, 2017 04:20 - CONCLUSION: Unremarkable examination of the pelvis. Tre Casarez MD Maxillofacial CT 07/22/17437 Signed Impressions: Service Date/Time: Saturday, July 22, 2017 04:57 - CONCLUSION: 1. No acute fracture identified. Trace fluid in the maxillary sinuses. Tre Casarez MD Head CT 07/22/17437 Signed Impressions: Service Date/Time: Saturday, July 22, 2017 04:57 - CONCLUSION: 1. 5 mm hemorrhagic contusion left frontal lobe. No other hemorrhage identified. Tre Casarez MD Chest X-Ray 07/22/17437 Signed Impressions: Service Date/Time: Saturday, July 22, 2017 04:20 - CONCLUSION: No acute disease. Tre Casarez MD Chest CT 07/22/178 Signed Impressions: Service Date/Time: Saturday, July 22, 2017 05:02 - CONCLUSION: 1. Fractures of the right scapula and first and second right ribs as above. Mild right lung contusion superiorly. Dependent atelectasis in the lungs. Trace pleural fluid. No mediastinal hematoma. Tre Casarez MD Cervical Spine CT 07/22/17437 Signed Impressions: Service Date/Time: Saturday, July 22, 2017 04:57 - CONCLUSION: 1. Fracture left transverse process C7, nondisplaced. No other cervical spine fractures. Upper right rib fractures noted incidentally. Tre Casarez MD Abdomen/Pelvis CT 07/22/17437 Signed Impressions: Service Date/Time: Saturday, July 22, 2017 05:02 - CONCLUSION: 1. Dependent atelectasis in the lungs. Negative for traumatic injury within the abdomen and pelvis. Tre Casarez MD Tibia/Fibula X-Ray 07/22/17 Signed Impressions: Service Date/Time: Saturday, July 22, 2017 04:20 - CONCLUSION: 1. Fractures distal tibia and fibula. Also mildly displaced fracture proximal fibula. Tre Casarez MD Objective Remarks Left lower extremity: +exfix. pin sites clean. full sensation distally. 2+ swelling of ankle. Active motion of toes and good capillary refills Right upper extremity: Pain to palpation over scapula and acromion. Sling loosened. He has no pain with motion of elbow wrist or fingers. He has intact sensation with full extension and flexion of all fingers Assessment & Plan Assessment and Plan 1) Left Tibial Pilon Fx s/p application of exfix - POD 6 -ice -elevate -NWB -will continue to eval swelling. will plan for OR when swelling improved. still too swollen for OR We will reassess swelling at the beginning of the week for possible surgery 2) right scapula body and acromion fracture Nonweightbearing right upper extremity Sling at all times Conservative treatment with no surgery anticipated. We'll continue to follow with x-rays to make sure fracture does not displace further Cosmo Saez Jr. Jul 28, 2017 11:48
[2017-07-28 12:00] VITALS: BP 126/74; PULSE 63; RESP 16; TEMP 98.7; O2SAT 100
[2017-07-28 16:32] VITALS: BP 129/71; PULSE 68; RESP 16; TEMP 98.1; O2SAT 98
[2017-07-28 20:00] VITALS: BP 124/71; PULSE 65; RESP 20; TEMP 100.2; O2SAT 96
[2017-07-28] MEDS: SODIUM CHLORIDE 0.9% FLUSH 10 ML FLUSH IV FLUSH PRN (21:58)
[2017-07-28] MEDS: MAGNESIUM HYDROXIDE SUSP 30 ML CUP PO SCH (21:59)
[2017-07-29] VITALS: BP 135/69; PULSE 65; RESP 20; TEMP 98.8; O2SAT 98
[2017-07-29] MEDS: METHOCARBAMOL 500 MG TAB PO SCH ×3 (05:59→20:35)
[2017-07-29 08:00] VITALS: BP 130/78; PULSE 72; RESP 16; TEMP 98.5; O2SAT 98
[2017-07-29] MEDS: SODIUM CHLORIDE 0.9% FLUSH 10 ML FLUSH IV FLUSH PRN (09:25)
[2017-07-29] MEDS: DOCUSATE SODIUM 50 MG/SENNA 8.6 MG TAB PO SCH ×2 (09:25→20:35)
[2017-07-29] MEDS: levETIRAcetam INJ 500 MG in SODIUM CHLORIDE 0.9% INJ 100 ML IV SCH ×2 (09:25→20:35)
[2017-07-29] MEDS: LACTULOSE SYRUP 20 GM/30 ML CUP PO SCH (09:25)
[2017-07-29] MEDS: FAMOTIDINE 20 MG TAB PO SCH ×2 (09:25→20:35)
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
[2017-07-29 12:00] VITALS: BP 120/71; PULSE 83; RESP 16; TEMP 99.4; O2SAT 98
[2017-07-29] MEDS: ENOXAPARIN SODIUM 30 MG/0.3 ML SYRINGE SQ SCH ×2 (13:05→23:40)
[2017-07-29 16:00] VITALS: BP 118/61; PULSE 78; RESP 18; TEMP 98.3; O2SAT 97
[2017-07-29 19:32] VITALS: BP 133/80; PULSE 71; RESP 18; TEMP 98.5; O2SAT 99
[2017-07-29] MEDS: MAGNESIUM HYDROXIDE SUSP 30 ML CUP PO SCH (20:35)
[2017-07-29 23:40] VITALS: BP 143/74; PULSE 66; RESP 19; TEMP 97.9; O2SAT 100
[2017-07-30] MEDS: METHOCARBAMOL 500 MG TAB PO SCH ×3 (05:29→21:18)
[2017-07-30 08:00] VITALS: BP 119/64; PULSE 71; RESP 16; TEMP 98.3; O2SAT 98
[2017-07-30] MEDS: LACTULOSE SYRUP 20 GM/30 ML CUP PO SCH (09:13)
[2017-07-30] MEDS: DOCUSATE SODIUM 50 MG/SENNA 8.6 MG TAB PO SCH ×2 (09:13→21:18)
[2017-07-30] MEDS: FAMOTIDINE 20 MG TAB PO SCH ×2 (09:13→21:18)
[2017-07-30] MEDS: levETIRAcetam INJ 500 MG in SODIUM CHLORIDE 0.9% INJ 100 ML IV SCH ×2 (09:13→21:17)
[2017-07-30] MEDS: ACETAMINOPHEN/HYDROcodone 325 MG/7.5 MG TAB PO PRN (09:23)
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
[2017-07-30] MEDS: ENOXAPARIN SODIUM 30 MG/0.3 ML SYRINGE SQ SCH ×2 (11:36→23:10)
[2017-07-30 12:00] VITALS: BP 109/63; PULSE 68; RESP 16; TEMP 98.4; O2SAT 94
[2017-07-30 16:00] VITALS: BP 108/56; PULSE 79; RESP 16; TEMP 98.8; O2SAT 98
[2017-07-30 20:10] VITALS: BP 117/68; PULSE 77; RESP 16; TEMP 98.7; O2SAT 98
[2017-07-30] MEDS: MAGNESIUM HYDROXIDE SUSP 30 ML CUP PO SCH (21:18)
[2017-07-30 23:45] VITALS: BP 131/71; PULSE 72; RESP 16; TEMP 98.7; O2SAT 97
[2017-07-31] MEDS: METHOCARBAMOL 500 MG TAB PO SCH ×3 (05:56→21:41)
[2017-07-31] MEDS: DOCUSATE SODIUM 50 MG/SENNA 8.6 MG TAB PO SCH ×2 (07:03→21:00)
[2017-07-31] MEDS: LACTULOSE SYRUP 20 GM/30 ML CUP PO SCH (07:03)
--- NOTE | 2017-07-31 07:37 | PD.ORT.PN ---
Subjective Subjective Remarks Pt resting comfortably. No complaints. Pain controlled Objective Vitals Vital Signs Date Time Temp Pulse Resp B/P (MAP) Pulse Ox O2 Delivery O2 Flow Rate FiO2 07/30/17 23:45 98.7 72 16 131/71 (91) 97 07/30/17 20:10 98.7 77 16 117/68 (84) 98 07/30/17 16:00 98.8 79 16 108/56 (73) 98 07/30/17 12:00 98.4 68 16 109/63 (78) 94 07/30/17 10:23 18 07/30/17 08:00 98.3 71 16 119/64 (82) 98 I/O 07/30/17 07/30/17 07/30/17 07/31/17 07/31/17 07/31/17 07:00 15:00 23:00 07:00 15:00 23:00 Intake Total 360 ml 600 ml 580 ml 240 ml Balance 360 ml 600 ml 580 ml 240 ml Intake Oral 360 ml 600 ml 480 ml 240 ml IV Total 100 ml # Voids 3 4 2 1 # Bowel Movements 0 0 0 0 Result Diagram: 07/28/1743 07/28/1743 Imaging Last 24 hours Impressions Pelvis X-Ray 07/22/17437 Signed Impressions: Service Date/Time: Saturday, July 22, 2017 04:20 - CONCLUSION: Unremarkable examination of the pelvis. Tre Casarez MD Maxillofacial CT 07/22/17437 Signed Impressions: Service Date/Time: Saturday, July 22, 2017 04:57 - CONCLUSION: 1. No acute fracture identified. Trace fluid in the maxillary sinuses. Tre Casarez MD Head CT 07/22/178 Signed Impressions: Service Date/Time: Saturday, July 22, 2017 04:57 - CONCLUSION: 1. 5 mm hemorrhagic contusion left frontal lobe. No other hemorrhage identified. Tre Casarez MD Chest X-Ray 07/22/17437 Signed Impressions: Service Date/Time: Saturday, July 22, 2017 04:20 - CONCLUSION: No acute disease. Tre Casarez MD Chest CT 07/22/178 Signed Impressions: Service Date/Time: Saturday, July 22, 2017 05:02 - CONCLUSION: 1. Fractures of the right scapula and first and second right ribs as above. Mild right lung contusion superiorly. Dependent atelectasis in the lungs. Trace pleural fluid. No mediastinal hematoma. Tre Casarez MD Cervical Spine CT 07/22/178 Signed Impressions: Service Date/Time: Saturday, July 22, 2017 04:57 - CONCLUSION: 1. Fracture left transverse process C7, nondisplaced. No other cervical spine fractures. Upper right rib fractures noted incidentally. Tre Casarez MD Abdomen/Pelvis CT 07/22/178 Signed Impressions: Service Date/Time: Saturday, July 22, 2017 05:02 - CONCLUSION: 1. Dependent atelectasis in the lungs. Negative for traumatic injury within the abdomen and pelvis. Tre Casarez MD Tibia/Fibula X-Ray 07/22/17 0000 Signed Impressions: Service Date/Time: Saturday, July 22, 2017 04:20 - CONCLUSION: 1. Fractures distal tibia and fibula. Also mildly displaced fracture proximal fibula. Tre Casarez MD Objective Remarks Left lower extremity: +exfix. pin sites clean. full sensation distally. Mild to moderate swelling of ankle. Active motion of toes and good capillary refills Right upper extremity: Pain to palpation over scapula and acromion. Sling loosened. He has no pain with motion of elbow wrist or fingers. He has intact sensation with full extension and flexion of all fingers Assessment & Plan Assessment and Plan 1) Left Tibial Pilon Fx s/p application of exfix - -ice -elevate -NWB -will continue to eval swelling. will plan for OR this week 2) right scapula body and acromion fracture Nonweightbearing right upper extremity Sling at all times Conservative treatment with no surgery anticipated. We'll continue to follow with x-rays to make sure fracture does not displace further Parvez Jenkins MD Jul 31, 2017 07:37
[2017-07-31 08:00] VITALS: BP 107/65; PULSE 59; RESP 16; TEMP 97.6; O2SAT 99
[2017-07-31] MEDS: FAMOTIDINE 20 MG TAB PO SCH ×2 (08:13→21:41)
[2017-07-31] MEDS: levETIRAcetam INJ 500 MG in SODIUM CHLORIDE 0.9% INJ 100 ML IV SCH ×2 (08:13→21:43)
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
[2017-07-31 12:01] VITALS: BP 117/64; PULSE 66; RESP 16; TEMP 98.4; O2SAT 98
[2017-07-31 20:30] VITALS: BP 129/76; PULSE 80; RESP 16; TEMP 99.4; O2SAT 97
[2017-07-31] MEDS: MAGNESIUM HYDROXIDE SUSP 30 ML CUP PO SCH (21:00)
[2017-08-01 00:55] VITALS: BP 118/62; PULSE 66; RESP 16; TEMP 97.7; O2SAT 98
[2017-08-01 04:30] VITALS: BP 131/78; PULSE 66; RESP 16; TEMP 97.7; O2SAT 98
[2017-08-01] MEDS: METHOCARBAMOL 500 MG TAB PO SCH ×3 (06:27→21:15)
--- NOTE | 2017-08-01 06:57 | PD.ORT.PN ---
Subjective Subjective Remarks Resting comfortably with no new complaints Objective Vitals Vital Signs Date Time Temp Pulse Resp B/P (MAP) Pulse Ox O2 Delivery O2 Flow Rate FiO2 08/01/17 04:30 97.7 66 16 131/78 (95) 98 08/01/17 00:55 97.7 66 16 118/62 (80) 98 07/31/17 20:30 99.4 80 16 129/76 (93) 97 07/31/17 12:01 98.4 66 16 117/64 (81) 98 07/31/17 08:18 Room Air 07/31/17 08:00 97.6 59 16 107/65 (79) 99 I/O 07/31/17 07/31/17 07/31/17 08/01/17 08/01/17 08/01/17 07:00 15:00 23:00 07:00 15:00 23:00 Intake Total 240 ml 600 ml 585 ml 0 ml Balance 240 ml 600 ml 585 ml 0 ml Intake Oral 240 ml 600 ml 480 ml 0 ml IV Total 105 ml # Voids 1 4 1 2 # Bowel Movements 0 0 0 0 Result Diagram: 07/28/1743 07/28/1743 Imaging Last 24 hours Impressions Pelvis X-Ray 07/22/17437 Signed Impressions: Service Date/Time: Saturday, July 22, 2017 04:20 - CONCLUSION: Unremarkable examination of the pelvis. Tre Casarez MD Maxillofacial CT 07/22/17437 Signed Impressions: Service Date/Time: Saturday, July 22, 2017 04:57 - CONCLUSION: 1. No acute fracture identified. Trace fluid in the maxillary sinuses. Tre Casarez MD Head CT 07/22/178 Signed Impressions: Service Date/Time: Saturday, July 22, 2017 04:57 - CONCLUSION: 1. 5 mm hemorrhagic contusion left frontal lobe. No other hemorrhage identified. Tre Casarez MD Chest X-Ray 07/22/17437 Signed Impressions: Service Date/Time: Saturday, July 22, 2017 04:20 - CONCLUSION: No acute disease. Tre Casarez MD Chest CT 07/22/178 Signed Impressions: Service Date/Time: Saturday, July 22, 2017 05:02 - CONCLUSION: 1. Fractures of the right scapula and first and second right ribs as above. Mild right lung contusion superiorly. Dependent atelectasis in the lungs. Trace pleural fluid. No mediastinal hematoma. Tre Casarez MD Cervical Spine CT 07/22/178 Signed Impressions: Service Date/Time: Saturday, July 22, 2017 04:57 - CONCLUSION: 1. Fracture left transverse process C7, nondisplaced. No other cervical spine fractures. Upper right rib fractures noted incidentally. Tre Casarez MD Abdomen/Pelvis CT 07/22/178 Signed Impressions: Service Date/Time: Saturday, July 22, 2017 05:02 - CONCLUSION: 1. Dependent atelectasis in the lungs. Negative for traumatic injury within the abdomen and pelvis. Tre Casarez MD Tibia/Fibula X-Ray 07/22/17 0000 Signed Impressions: Service Date/Time: Saturday, July 22, 2017 04:20 - CONCLUSION: 1. Fractures distal tibia and fibula. Also mildly displaced fracture proximal fibula. Tre Casarez MD Objective Remarks Left lower extremity: +exfix. pin sites clean. full sensation distally. Moderate swelling of ankle. Active motion of toes and good capillary refills. Right upper extremity: Pain to palpation over scapula and acromion. Sling loosened. He has no pain with motion of elbow wrist or fingers. He has intact sensation with full extension and flexion of all fingers Assessment & Plan Assessment and Plan 1) Left Tibial Pilon Fx s/p application of exfix - -ice -elevate -NWB -will continue to eval swelling. will plan for OR tomorrow NPO after MN 2) right scapula body and acromion fracture Nonweightbearing right upper extremity Sling at all times Conservative treatment with no surgery anticipated. We'll continue to follow with x-rays to make sure fracture does not displace further Cosmo Saez Jr. Aug 01, 2017 06:57
[2017-08-01] MEDS ORDERED: ENOXAPARIN SODIUM 30 MG/0.3 ML SYRINGE SQ ONE (07:00)
[2017-08-01] MEDS: SODIUM CHLORIDE 0.9% FLUSH 10 ML FLUSH IV FLUSH PRN ×2 (07:32→21:15)
[2017-08-01] MEDS: DOCUSATE SODIUM 50 MG/SENNA 8.6 MG TAB PO SCH ×2 (07:32→21:15)
[2017-08-01] MEDS: FAMOTIDINE 20 MG TAB PO SCH ×2 (07:32→21:15)
[2017-08-01] MEDS: levETIRAcetam INJ 500 MG in SODIUM CHLORIDE 0.9% INJ 100 ML IV SCH ×2 (07:33→21:17)
[2017-08-01] MEDS: LACTULOSE SYRUP 20 GM/30 ML CUP PO SCH (07:33)
[2017-08-01 08:00] VITALS: BP 125/76; PULSE 61; RESP 16; TEMP 98.5; O2SAT 99
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
[2017-08-01 11:17] VITALS: BP 125/69; PULSE 64; RESP 16; TEMP 89.4; O2SAT 98
[2017-08-01 17:12] VITALS: BP 132/82; PULSE 75; RESP 15; TEMP 98.6; O2SAT 97
[2017-08-01 20:25] VITALS: BP 128/78; PULSE 64; RESP 16; TEMP 99.6; O2SAT 97
[2017-08-01] MEDS: MAGNESIUM HYDROXIDE SUSP 30 ML CUP PO SCH (21:00)
[2017-08-02 00:35] VITALS: BP 133/80; PULSE 63; RESP 16; TEMP 98.2; O2SAT 98
[2017-08-02] MEDS ORDERED: SODIUM CHLORID 0.9% 500 ML IV PRN (00:45)
[2017-08-02] MEDS ORDERED: METOPROLOL TARTRATE 25 MG TAB PO PRN (00:45)
[2017-08-02] MEDS ORDERED: INSULIN HUMAN REGULAR 1,000 UNITS/10 ML VIAL SQ PRN (00:45)
[2017-08-02] MEDS ORDERED: CHLORHEXIDINE GLUCONATE 2 % 1 PACK (2 CLOTHS) TOPICAL PRN (00:45)
[2017-08-02] MEDS ORDERED: LACTATED RINGER'S 1000 ML IV PRN (00:45)
[2017-08-02] MEDS ORDERED: POVIDONE IODINE 5% (ANTISEPSIS KIT) 4 APPLICATIONS EACH NARE PRN (00:45)
[2017-08-02] MEDS: METHOCARBAMOL 500 MG TAB PO SCH ×3 (05:56→21:26)
--- NOTE | 2017-08-02 06:48 | PD.ORT.PN ---
Subjective Subjective Remarks s/p exfix left tibial pilon fx doing well. pain controlled. resting comfortably. Objective Vitals Vital Signs Date Time Temp Pulse Resp B/P (MAP) Pulse Ox O2 Delivery O2 Flow Rate FiO2 08/02/17 00:35 98.2 63 16 133/80 (97) 98 08/01/17 20:25 99.6 64 16 128/78 (95) 97 08/01/17 19:11 Room Air 08/01/17 17:12 98.6 75 15 132/82 (99) 97 08/01/17 11:17 89.4 64 16 125/69 (87) 98 08/01/17 08:00 98.5 61 16 125/76 (92) 99 I/O 08/01/17 08/01/17 08/01/17 08/02/17 08/02/17 08/02/17 07:00 15:00 23:00 07:00 15:00 23:00 Intake Total 0 ml 600 ml 480 ml 105 ml Balance 0 ml 600 ml 480 ml 105 ml Intake Oral 0 ml 600 ml 480 ml 0 ml IV Total 105 ml # Voids 2 3 2 2 # Bowel Movements 0 0 0 0 Imaging Last 24 hours Impressions Pelvis X-Ray 07/22/17437 Signed Impressions: Service Date/Time: Saturday, July 22, 2017 04:20 - CONCLUSION: Unremarkable examination of the pelvis. Tre Casarez MD Maxillofacial CT 07/22/17437 Signed Impressions: Service Date/Time: Saturday, July 22, 2017 04:57 - CONCLUSION: 1. No acute fracture identified. Trace fluid in the maxillary sinuses. Tre Casarez MD Head CT 07/22/17437 Signed Impressions: Service Date/Time: Saturday, July 22, 2017 04:57 - CONCLUSION: 1. 5 mm hemorrhagic contusion left frontal lobe. No other hemorrhage identified. Tre Casarez MD Chest X-Ray 07/22/17437 Signed Impressions: Service Date/Time: Saturday, July 22, 2017 04:20 - CONCLUSION: No acute disease. Tre Casarez MD Chest CT 07/22/178 Signed Impressions: Service Date/Time: Saturday, July 22, 2017 05:02 - CONCLUSION: 1. Fractures of the right scapula and first and second right ribs as above. Mild right lung contusion superiorly. Dependent atelectasis in the lungs. Trace pleural fluid. No mediastinal hematoma. Tre Casarez MD Cervical Spine CT 07/22/17 0438 Signed Impressions: Service Date/Time: Saturday, July 22, 2017 04:57 - CONCLUSION: 1. Fracture left transverse process C7, nondisplaced. No other cervical spine fractures. Upper right rib fractures noted incidentally. Tre Casarez MD Abdomen/Pelvis CT 07/22/178 Signed Impressions: Service Date/Time: Saturday, July 22, 2017 05:02 - CONCLUSION: 1. Dependent atelectasis in the lungs. Negative for traumatic injury within the abdomen and pelvis. Tre Casarez MD Tibia/Fibula X-Ray 07/22/17 0000 Signed Impressions: Service Date/Time: Saturday, July 22, 2017 04:20 - CONCLUSION: 1. Fractures distal tibia and fibula. Also mildly displaced fracture proximal fibula. Tre Casarez MD Objective Remarks Left lower extremity: +exfix. pin sites clean. full sensation distally. Moderate swelling of ankle. Active motion of toes and good capillary refills. Right upper extremity: Pain to palpation over scapula and acromion. Sling loosened. He has no pain with motion of elbow wrist or fingers. He has intact sensation with full extension and flexion of all fingers Assessment & Plan Assessment and Plan 1) Left Tibial Pilon Fx s/p application of exfix - -ice -elevate -NWB -surgery today 2) right scapula body and acromion fracture Nonweightbearing right upper extremity Sling at all times Conservative treatment with no surgery anticipated. We'll continue to follow with x-rays to make sure fracture does not displace further Andrae Silva Aug 02, 2017 06:48
[2017-08-02] MEDS ORDERED: GENTAMICIN SULFATE 80 MG/2 ML VIAL ONE (07:21)
[2017-08-02] MEDS ORDERED: MIDAZOLAM HCL 2 MG/2 ML VIAL ONE (07:31)
[2017-08-02] MEDS ORDERED: ACETAMINOPHEN 1000 MG/100 ML 100 ML IV ONE (07:31)
[2017-08-02] MEDS: VANCOMYCIN HCL 1000 MG VIAL ONE ×2 (07:48→07:52)
[2017-08-02] MEDS ORDERED: ceFAZolin INJ 1,000 MG VIAL ONE (08:25)
[2017-08-02] MEDS ORDERED: XARE10TA PO (08:47)
[2017-08-02] MEDS ORDERED: HYDR-3580 PO (08:47)
[2017-08-02] MEDS ORDERED: WHEEMIS3 (08:47)
[2017-08-02] MEDS: DOCUSATE SODIUM 50 MG/SENNA 8.6 MG TAB PO SCH ×2 (09:00→21:26)
[2017-08-02] MEDS: FAMOTIDINE 20 MG TAB PO SCH ×2 (09:00→21:26)
[2017-08-02] MEDS: LACTULOSE SYRUP 20 GM/30 ML CUP PO SCH (09:00)
--- NOTE | 2017-08-02 09:57 | PD.OP ---
cc: Parvez Morales MD Operative Report Date of Surgery: Aug 02, 2017 Preoperative Diagnosis: Comminuted displaced left distal tibia and fibula fractures Postoperative Diagnosis: Procedure: Open reduction internal fixation left distal tibia and fibula fractures, removal of external fixation Anesthesia: Gen. Surgeon: Parvez Morales Account Manager Trainee(s): CHRIS Kumari PA-C The surgical procedure was assisted by my physician medical technician assistant. My P.A. presence was necessary throughout this case for the manipulation and positioning of the surgical extremity. My P.A. was assisting me throughout the duration of this procedure. The skill set of a physician medical technician assistant was medically necessary to complete this procedure. During the surgical case the floor care technician was working at the back table and the physician medical technician assistant was directly assisting me. Operation and Findings: Informed consent was obtained for treatment of his left distal tibia and fibula fractures after detailed discussion of risk and benefits of surgery. Soft tissue was evaluated preoperatively and found to be suitable for surgery. Patient was brought to the operating placed on operating room table. Patient was given IV sedation and general anesthesia. Timeout procedure was performed, and IV antibiotics were given prior to procedure. Procedure began with removal of a portion of the external fixator. Clamps were loosened. Clamps and bars were removed. The metatarsal pins were also removed. The tibial and calcaneal pins were left in place. The left leg was now prepped with alcohol followed by Hibiclens and draped usual sterile fashion. A 8 inch incision was now made over the anterior-lateral aspect of the ankle. A full thickness flap was now elevated. This incision was utilized to expose both the fibula and anterolateral tibia. The distal tibia and fibula were now exposed. The articular surface was now evaluated. Attention was now turned towards reduction of the fibula. There was some comminution of the fracture. Fracture fragments were manipulated. Excellent reduction was achieved. A Synthes plate was selected. Plate was provisionally held the bone with K wires. 3.5 cortical screws were used to compress plate to bone. Multiple screws were placed above and below fracture. Fluoroscopy confirmed well aligned fibular fracture. Next attention was turned to the anterolateral distal tibia. The metaphyseal fragments were reduced first. There were multiple metaphyseal fragments. These were manipulated in excellent reduction was achieved. Fracture tenaculums were used to reduce fractures. Multiple K wires were used to hold provisional fixation. There was mild depression and displacement of the articular surface. The joint surface was elevated. A second 4 inch incision was made over the medial aspect of the ankle. Subcutaneous tissues dissected Bovie. Saphenous vein was retracted. The medial and posterior aspects of the fracture were now visualized through this incision. The metaphyseal 5 was were manipulated. Excellent alignment was achieved. A clamp was placed around the posterior aspect of the fracture. The posterior aspect of the articular surface was reduced to the anterior portion. K wires were used to hold provisional fixation. The areas of impacted articular surface were now elevated using a bone tamp through a metaphyseal window. Additional K wires were placed for provisional fixation. Fluoroscopy confirmed excellent alignment of fractures. A Synthes distal tibial plate was selected. Plate was provisionally held to bone with K wires. 2.7 cortical screws and 3.5 cortical screws were used to compress plate to bone. Multiple screws were placed into the shaft. Multiple 2.7 locking screws were placed into the distal segment. All screws were predrilled and premeasured for appropriate lengths. A second plate was placed along the medial column. Multiple 2.7 cortical screws were used to compress plate to bone. The screws were also used to capture the anterior lateral fragment. Final fluoroscopy revealed well aligned fracture with well-placed hardware. The wound was now thoroughly irrigated. Fascia was closed with #1 Vicryl, subcutaneous tissues closed with 3-0 Vicryl and skin was closed with 3-0 nylon. At this point attention was turned towards removal of the external fixation. The remaining external fixator pins were now removed. Needle and sponge counts were correct. Sterile dressings were applied. He was placed into a well molded well-padded splint. Patient was transferred to recovery room in stable condition. Parvez Morales MD Aug 02, 2017 09:57
[2017-08-02] MEDS ORDERED: SODIUM CHLORIDE 0.9% FLUSH 5 ML FLUSH IVF PRN (10:00)
[2017-08-02] MEDS ORDERED: NALOXONE HCL 0.4 MG/ML AMP IV PRN (10:00)
[2017-08-02] MEDS ORDERED: Post-op Orders (for Pharmacy) MISC XX ONE (10:00)
[2017-08-02] MEDS ORDERED: MISCELLANEOUS NURSING INFORMATION XX PRN (10:00)
[2017-08-02] MEDS ORDERED: MISCELLANEOUS PHARMACY INFORMATION XX ONE (10:00)
[2017-08-02] MEDS ORDERED: DO NOT ADM ANY ANTICOAGULANT DRUGS PRN (10:42)
[2017-08-02] MEDS: LACTATED RINGER'S 1000 ML INJ 1,000 ML IV SCH ×2 (10:50→23:51)
[2017-08-02] MEDS ORDERED: *morphine SULFATE 8 MG/ML PERIprocedure ONLY ONE (10:50)
[2017-08-02] MEDS: MORPHINE SULFATE 30 MG/30 ML PCA IV SCH ×2 (11:02→15:29)
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
[2017-08-02] MEDS ORDERED: LACTATED RINGER'S 1000 ML INJ 1,000 ML IV ONE (12:37)
[2017-08-02] MEDS ORDERED: PROPOFOL 200 MG/20 ML AMP IV ONE (12:37)
[2017-08-02] MEDS ORDERED: ONDANSETRON HCL 4 MG/2 ML VIAL IV PUSH ONE (12:37)
[2017-08-02] MEDS ORDERED: SODIUM CHLOR 0.9% 250 ML INJ 250 ML IV ONE (12:37)
[2017-08-02] MEDS ORDERED: KETOROLAC TROMETHAMINE 60 MG/2 ML (IM) VIAL IM ONE (12:37)
[2017-08-02] MEDS: KETOROLAC TROMETHAMINE 30 MG/ML (IVP) VIAL IVP SCH ×2 (12:55→21:26)
[2017-08-02] MEDS ORDERED: LACTULOSE SYRUP 20 GM/30 ML CUP PO ONE (13:00)
--- NOTE | 2017-08-02 13:34 | RADRPT ---
EXAM DATE/TIME: 08/02/2017 09:36 [facility] COMPARISON: ANKLE LEFT LIMITED (AP&LAT), July 22, 2017, 12:49. INDICATIONS : Left ankle open reduction internal fixation. MEDICAL HISTORY : Unobtainable. SURGICAL HISTORY : left ankle. ENCOUNTER: Subsequent ACUITY: 1 day PAIN SCORE: Non-responsive. LOCATION: Left ankle FINDINGS: Anatomic alignment with plate and screws in good position.. CONCLUSION: Anatomic alignment. Sreekanth Harper MD FACR on August 02, 2017 at 13:32 Board Certified Radiologist. This report was verified electronically.
[2017-08-02] MEDS: PCA - TOTAL MG MORPHINE DELIVERED PER SHIFT SCH ×2 (14:00→21:36)
[2017-08-02 15:26] VITALS: BP 136/80; PULSE 100; RESP 17; TEMP 96.8; O2SAT 97
[2017-08-02] MEDS: ceFAZolin 2 GM PREMIX 50 ML IV SCH ×2 (17:29→23:46)
[2017-08-02 19:10] VITALS: BP 127/78; PULSE 75; RESP 19; TEMP 97.3; O2SAT 96
[2017-08-02 21:01] VITALS: O2SAT 96
[2017-08-02] MEDS: MAGNESIUM HYDROXIDE SUSP 30 ML CUP PO SCH (21:27)
[2017-08-02] MEDS: VANCOMYCIN INJ 1,000 MG in SODIUM CHLOR 0.9% 250 ML INJ 250 ML IV SCH (21:29)
[2017-08-02] MEDS: SODIUM CHLORIDE 0.9% FLUSH 5 ML FLUSH IVF SCH (21:36)
[2017-08-02 23:41] VITALS: BP 140/73; PULSE 73; RESP 18; TEMP 97.9; O2SAT 98
[2017-08-03 04:21] VITALS: BP 135/71; PULSE 79; RESP 18; TEMP 97.6; O2SAT 99
[2017-08-03] MEDS: MORPHINE SULFATE 30 MG/30 ML PCA IV SCH (04:53)
[2017-08-03] MEDS: METHOCARBAMOL 500 MG TAB PO SCH ×3 (05:59→20:44)
[2017-08-03] MEDS: PCA - TOTAL MG MORPHINE DELIVERED PER SHIFT SCH (06:00)
[2017-08-03] MEDS: KETOROLAC TROMETHAMINE 30 MG/ML (IVP) VIAL IVP SCH ×2 (06:03→15:11)
--- NOTE | 2017-08-03 06:32 | PD.ORT.PN ---
Subjective Subjective Remarks Pt resting. No complaints. Pain controlled Objective Vitals Vital Signs Date Time Temp Pulse Resp B/P (MAP) Pulse Ox O2 Delivery O2 Flow Rate FiO2 08/03/17 06:00 18 08/03/17 04:53 18 08/03/17 04:21 97.6 79 18 135/71 (92) 99 08/02/17 23:41 97.9 73 18 140/73 (95) 98 08/02/17 21:36 18 08/02/17 21:01 96 08/02/17 19:10 97.3 75 19 127/78 (94) 96 08/02/17 15:29 17 08/02/17 15:26 96.8 100 17 136/80 (98) 97 08/02/17 14:53 Nasal Cannula 2.00 08/02/17 14:00 17 08/02/17 11:12 98.7 91 16 140/79 (99) 96 Nasal Cannula 2 08/02/17 11:05 93 16 139/83 (101) 96 Nasal Cannula 2 08/02/17 11:02 16 08/02/17 10:55 95 16 142/80 (100) 97 Nasal Cannula 3 08/02/17 10:41 98.7 97 16 144/79 (100) 94 Nasal Cannula 3 I/O 08/02/17 08/02/17 08/02/17 08/03/17 08/03/17 08/03/17 07:00 15:00 23:00 07:00 15:00 23:00 Intake Total 105 ml 4250 ml 480 ml 360 ml Output Total 520 ml Balance 105 ml 3730 ml 480 ml 360 ml Intake Oral 0 ml 750 ml 480 ml 360 ml IV Total 105 ml 1750 ml Other 1750 ml Output Urine Total 320 ml Estimated Blood Loss 200 ml # Voids 2 3 2 # Bowel Movements 0 0 0 0 Imaging Last 24 hours Impressions Pelvis X-Ray 07/22/17437 Signed Impressions: Service Date/Time: Saturday, July 22, 2017 04:20 - CONCLUSION: Unremarkable examination of the pelvis. Tre Casarez MD Maxillofacial CT 07/22/17437 Signed Impressions: Service Date/Time: Saturday, July 22, 2017 04:57 - CONCLUSION: 1. No acute fracture identified. Trace fluid in the maxillary sinuses. Tre Casarez MD Head CT 07/22/17437 Signed Impressions: Service Date/Time: Saturday, July 22, 2017 04:57 - CONCLUSION: 1. 5 mm hemorrhagic contusion left frontal lobe. No other hemorrhage identified. Tre Casarez MD Chest X-Ray 07/22/178 Signed Impressions: Service Date/Time: Saturday, July 22, 2017 04:20 - CONCLUSION: No acute disease. Tre Casarez MD Chest CT 07/22/17437 Signed Impressions: Service Date/Time: Saturday, July 22, 2017 05:02 - CONCLUSION: 1. Fractures of the right scapula and first and second right ribs as above. Mild right lung contusion superiorly. Dependent atelectasis in the lungs. Trace pleural fluid. No mediastinal hematoma. Tre Casarez MD Cervical Spine CT 07/22/178 Signed Impressions: Service Date/Time: Saturday, July 22, 2017 04:57 - CONCLUSION: 1. Fracture left transverse process C7, nondisplaced. No other cervical spine fractures. Upper right rib fractures noted incidentally. Tre Casarez MD Abdomen/Pelvis CT 07/22/17437 Signed Impressions: Service Date/Time: Saturday, July 22, 2017 05:02 - CONCLUSION: 1. Dependent atelectasis in the lungs. Negative for traumatic injury within the abdomen and pelvis. Tre Casarez MD Tibia/Fibula X-Ray 07/22/17 0000 Signed Impressions: Service Date/Time: Saturday, July 22, 2017 04:20 - CONCLUSION: 1. Fractures distal tibia and fibula. Also mildly displaced fracture proximal fibula. Tre Casarez MD Objective Remarks Left lower extremity: Clean dry dressing in place. No visible drainage. Minimal pain with Active motion of toes with good capillary refills. Right upper extremity: Pain to palpation over scapula and acromion. Sling loosened. He has no pain with motion of elbow wrist or fingers. He has intact sensation with full extension and flexion of all fingers Assessment & Plan Assessment and Plan 1) Left Tibial Pilon Fx s/p removal of ex-fix with open reduction internal fixation -elevate -NWB 2) right scapula body and acromion fracture Nonweightbearing right upper extremity Sling at all times Conservative treatment with no surgery anticipated. We'll continue to follow with x-rays to make sure fracture does not displace further Parvez Jenkins MD Aug 03, 2017 06:32
[2017-08-03 06:44] LABS: HEMATOCRIT 27.4 % (39.0-51.0); MEAN CORPUSCULAR HGB CONC 34.6 % (32.0-36.0); PLATELET COUNT 265 TH/MM3 (150-450); RED BLOOD COUNT 3.51 MIL/MM3 (4.50-5.90); RED CELL DISTRIBUTION WIDTH 14.4 % (11.6-17.2); REVIEW FLAG FINAL; WHITE BLOOD COUNT 7.6 TH/MM3 (4.0-11.0)
[2017-08-03 07:05] LABS: BICARBONATE 24.6 MEQ/L (21.0-32.0); POTASSIUM 3.6 MEQ/L (3.5-5.1)
[2017-08-03 07:48] VITALS: BP 129/70; PULSE 65; RESP 18; TEMP 97.5; O2SAT 98
[2017-08-03] MEDS: VANCOMYCIN INJ 1,000 MG in SODIUM CHLOR 0.9% 250 ML INJ 250 ML IV SCH ×2 (08:53→20:45)
[2017-08-03] MEDS: ceFAZolin 2 GM PREMIX 50 ML IV SCH ×2 (08:53→15:10)
[2017-08-03] MEDS: DOCUSATE SODIUM 50 MG/SENNA 8.6 MG TAB PO SCH ×2 (08:54→20:43)
[2017-08-03] MEDS: SODIUM CHLORIDE 0.9% FLUSH 5 ML FLUSH IVF SCH ×2 (08:54→20:45)
[2017-08-03] MEDS: FAMOTIDINE 20 MG TAB PO SCH ×2 (08:54→20:44)
[2017-08-03] MEDS: LACTULOSE SYRUP 20 GM/30 ML CUP PO SCH (08:54)
[2017-08-03 11:05] VITALS: O2SAT 97
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
[2017-08-03 11:42] VITALS: BP 131/67; PULSE 84; RESP 18; TEMP 98; O2SAT 98
[2017-08-03] MEDS: ENOXAPARIN SODIUM 30 MG/0.3 ML SYRINGE SQ SCH ×2 (11:51→23:00)
[2017-08-03] MEDS: ACETAMINOPHEN/HYDROcodone 325 MG/10 MG TAB PO PRN ×2 (15:13→20:43)
[2017-08-03 15:48] VITALS: BP 121/74; PULSE 71; RESP 18; TEMP 98.6; O2SAT 99
[2017-08-03] MEDS ORDERED: WALKER/FOLDING1 MIS (15:50)
[2017-08-03 20:00] VITALS: BP 135/62; PULSE 84; RESP 18; TEMP 98.4; O2SAT 98
[2017-08-03] MEDS: MAGNESIUM HYDROXIDE SUSP 30 ML CUP PO SCH (20:44)
[2017-08-04 00:57] VITALS: BP 124/61; PULSE 87; RESP 18; TEMP 98.6; O2SAT 99
[2017-08-04] MEDS: ACETAMINOPHEN/HYDROcodone 325 MG/10 MG TAB PO PRN ×3 (01:15→14:25)
[2017-08-04] MEDS: METHOCARBAMOL 500 MG TAB PO SCH ×2 (06:21→14:00)
--- NOTE | 2017-08-04 06:55 | PD.ORT.PN ---
Subjective Subjective Remarks Resting comfortably with no new complaints Objective Vitals Vital Signs Date Time Temp Pulse Resp B/P (MAP) Pulse Ox O2 Delivery O2 Flow Rate FiO2 08/04/17 02:15 18 08/04/17 00:57 98.6 87 18 124/61 (82) 99 08/03/17 20:00 98.4 84 18 135/62 (86) 98 08/03/17 16:13 18 08/03/17 15:48 98.6 71 18 121/74 (90) 99 08/03/17 11:42 98.0 84 18 131/67 (88) 98 08/03/17 11:05 97 21 08/03/17 07:48 97.5 65 18 129/70 (89) 98 I/O 08/03/17 08/03/17 08/03/17 08/04/17 08/04/17 08/04/17 07:00 15:00 23:00 07:00 15:00 23:00 Intake Total 1123 ml 900 ml 1613 ml 410 ml Balance 1123 ml 900 ml 1613 ml 410 ml Intake Oral 360 ml 900 ml 480 ml 360 ml IV Total 763 ml 1133 ml 50 ml # Voids 2 3 3 2 # Bowel Movements 0 0 0 Result Diagram: 08/03/17 0529 08/03/1729 Imaging Last 24 hours Impressions Pelvis X-Ray 07/22/17437 Signed Impressions: Service Date/Time: Saturday, July 22, 2017 04:20 - CONCLUSION: Unremarkable examination of the pelvis. Tre Casarez MD Maxillofacial CT 07/22/17437 Signed Impressions: Service Date/Time: Saturday, July 22, 2017 04:57 - CONCLUSION: 1. No acute fracture identified. Trace fluid in the maxillary sinuses. Tre Casarez MD Head CT 07/22/17437 Signed Impressions: Service Date/Time: Saturday, July 22, 2017 04:57 - CONCLUSION: 1. 5 mm hemorrhagic contusion left frontal lobe. No other hemorrhage identified. Tre Casarez MD Chest X-Ray 07/22/17437 Signed Impressions: Service Date/Time: Saturday, July 22, 2017 04:20 - CONCLUSION: No acute disease. Tre Casarez MD Chest CT 07/22/17437 Signed Impressions: Service Date/Time: Saturday, July 22, 2017 05:02 - CONCLUSION: 1. Fractures of the right scapula and first and second right ribs as above. Mild right lung contusion superiorly. Dependent atelectasis in the lungs. Trace pleural fluid. No mediastinal hematoma. Tre Casarez MD Cervical Spine CT 07/22/17 0438 Signed Impressions: Service Date/Time: Saturday, July 22, 2017 04:57 - CONCLUSION: 1. Fracture left transverse process C7, nondisplaced. No other cervical spine fractures. Upper right rib fractures noted incidentally. Tre Casarez MD Abdomen/Pelvis CT 07/22/17 0438 Signed Impressions: Service Date/Time: Saturday, July 22, 2017 05:02 - CONCLUSION: 1. Dependent atelectasis in the lungs. Negative for traumatic injury within the abdomen and pelvis. Tre Casarez MD Tibia/Fibula X-Ray 07/22/17 0000 Signed Impressions: Service Date/Time: Saturday, July 22, 2017 04:20 - CONCLUSION: 1. Fractures distal tibia and fibula. Also mildly displaced fracture proximal fibula. Tre Casarez MD Objective Remarks Left lower extremity: Clean dry dressing in place. No visible drainage. Minimal pain with Active motion of toes with good capillary refills. Right upper extremity: Pain to palpation over scapula and acromion. Sling loosened. He has no pain with motion of elbow wrist or fingers. He has intact sensation with full extension and flexion of all fingers Assessment & Plan Assessment and Plan 1) Left Tibial Pilon Fx s/p removal of ex-fix with open reduction internal fixation POD 1 -elevate, understands that swelling will increase if leg is down -NWB 2) right scapula body and acromion fracture Nonweightbearing right upper extremity Sling at all times Conservative treatment with no surgery anticipated. We'll continue to follow with x-rays to make sure fracture does not displace further Nonweightbearing left lower extremity. May use hemiwalker to stand but must transfer to a wheelchair. May discharge to home and is deemed safe and DME's acquired. Follow-up appointment with Dr. Morales or ROMEL in 2 weeks. Cosmo Saez Jr. Aug 04, 2017 06:55
[2017-08-04] MEDS ORDERED: MAGNESIUM CITRATE SOLN 300 ML BTL PO ONE (07:45)
[2017-08-04 08:00] VITALS: BP 128/77; PULSE 62; RESP 16; TEMP 98.4; O2SAT 98
[2017-08-04] MEDS: SODIUM CHLORIDE 0.9% FLUSH 5 ML FLUSH IVF SCH (09:00)
[2017-08-04] MEDS: LACTULOSE SYRUP 20 GM/30 ML CUP PO SCH (09:01)
[2017-08-04] MEDS: ceFAZolin 2 GM PREMIX 50 ML IV SCH ×2 (09:01)
[2017-08-04] MEDS: DOCUSATE SODIUM 50 MG/SENNA 8.6 MG TAB PO SCH (09:01)
[2017-08-04] MEDS: FAMOTIDINE 20 MG TAB PO SCH (09:03)
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
[2017-08-04 12:00] VITALS: BP 116/69; PULSE 86; RESP 16; TEMP 98.7; O2SAT 96
[2017-08-04] MEDS: ENOXAPARIN SODIUM 30 MG/0.3 ML SYRINGE SQ SCH (12:34)
== END 2017-08-04 15:07 | disposition home or self-care (01) | DRG 958 ==
LOC: NEPI 04:28 → NEDA 05:16 → EDBD 05:16 → N03A 05:29 → N06A 07-23 21:59
PROVIDERS: ADMIT Surgery; ATTEND Surgery
DX: S06.329A Contusion and laceration of left cerebrum with loss of consciousness of unspecified duration, initial encounter (principal); S27.321A Contusion of lung, unilateral, initial encounter; S12.600A Unspecified displaced fracture of seventh cervical vertebra, initial encounter for closed fracture; S22.41XA Multiple fractures of ribs, right side, initial encounter for closed fracture; S82.872A Displaced pilon fracture of left tibia, initial encounter for closed fracture; S42.111A Displaced fracture of body of scapula, right shoulder, initial encounter for closed fracture; S42.121A Displaced fracture of acromial process, right shoulder, initial encounter for closed fracture; V49.9XXA Car occupant (driver) (passenger) injured in unspecified traffic accident, initial encounter; Y92.410 Unspecified street and highway as the place of occurrence of the external cause; S82.832A Other fracture of upper and lower end of left fibula, initial encounter for closed fracture; R40.2411 Glasgow coma scale score 13-15, in the field [EMT or ambulance]
CPT/HCPCS: 70450; 70486; 71010; 71260; 72125; 72170; 73590; 73600; 73700; 74177; 76000; 80048; 80053; 82435; 82565; 82947; 84132; 84295; 84520; 85025; 85027; 85610; 85730; 86850; 86900; 86901; 87641; 90471; 94150; 96374; 96375; 99291; C1713; C9113; G0390; J0131; J0690; J1170; J1580; J1650; J1885; J1953; J2175; J2250; J2270; J2405; J2710; J3010; J3370; J3411; J7030; J7040; J7050; J7120; Q9967